=== PATIENT | male | born 1935 | race Caucasian/White ===

== ENCOUNTER → 2018-03-24 | Day surgery (SDC) | payer MEDICARE ==
[2018-03-20 15:42] LABS: BASOPHILS % 0.4 % (0.0-1.0); EOSINOPHILS # (AUTO) 0.1 (0.0-0.4); HEMATOCRIT 45.5 % (38.2-49.6); HEMOGLOBIN 15.8 g/dL (14.0-18.0); LYMPHOCYTES # (AUTO) 1.8 (1.0-3.2); LYMPHOCYTES % 22.5 % (18.0-39.1); MEAN CORPUSCULAR HEMOGLOBIN 33.5 pg (28-32); MEAN CORPUSCULAR HGB CONC 34.7 g/dL (31-35); MEAN CORPUSCULAR VOLUME 96.4 fL (81-99); MONOCYTES # (AUTO) 0.7 (0.2-0.8); MONOCYTES % 9.2 % (4.4-11.3); NEUTROPHILS # (AUTO) 5.3 (2.1-6.9); NEUTROPHILS % 66.4 % (38.7-80.0); PLATELET COUNT 145 x10e3/uL (140-360); RED BLOOD COUNT 4.72 x10e6/uL (4.3-5.7)
[2018-03-20 15:59] LABS: ANION GAP 13.5 mmol/L (8-16); CALCIUM 9.7 mg/dL (8.4-10.2); CREATININE, SERUM 1.43 mg/dL (0.72-1.25); POTASSIUM 4.5 mmol/L (3.5-5.1)
--- NOTE | 2018-03-20 16:08 | Diagnostic Imaging Report ---
EXAMINATION: PA and lateral views of the chest. COMPARISON: CTA chest 05/13/2016 CLINICAL HISTORY: Preoperative study, bladder cancer DISCUSSION: Lungs are well-inflated. No focal consolidation, pleural effusion, or pneumothorax. 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 Stable postsurgical changes of the mediastinum. No acute osseous abnormality. IMPRESSION: No acute cardiopulmonary abnormality. Signed by: Dr. Benjamin Santacruz M.D. on 03/20/2018 4:05 PM
[~2018-03-24] MED LIST: ARICEPT5 MG PO; ASPIRIN81 M2 PO; CEFTRIAXONE SOD 1 GM VIAL ONE; COQ-10100 MG PO; DEXAMETHASONE SOD PHOS INJ 4 MG/ML VIAL ONE; LIDOCAINE HCL 2% LOCAL INJ 5 ML SDV VIAL INJ ONE; MELATONIN3 MG PO; NIACIN 100 MG; ONDANSETRON HCL INJ 2 MG/ML VIAL ONE; PRIMIDONE50 MG PO; PROPOFOL IV EMULSION 10 MG/ML 20 ML VIAL ONE; SERTRALINE HCL50 MG PO; SEVOFLURANE INHAL SOLN 250 ML PEN BTL ONE; TAMSULOSIN HCL0.4 MG PO; TRIPLIX; Z.0.ATENOLOL25 MG PO; Z.0.GLIPIZIDE5 MG PO; Z.0.ISOSORBIDE MONO3; Z.0.LISINOPRIL20 MG PO; Z.0.OMEPRAZOLE20 M1 PO; Z.0.PLAVIX75 MG PO; Z.0.PRAVASTATIN SOD2 PO; Z.0.ZOLPIDEM TARTRAT PO
--- OUTSIDE RECORDS SUMMARY | 2018-03-24 10:05 | XMS REPORT ---
Author Author [facility] Address Unknown Phone Unavailable Care Team Providers Care Manager Hydraulic Name Role Phone Miller CARROLL Unavailable Unavailable Angie Ahmadi Unavailable Unavailable Problems This patient has no known problems. Allergies, Adverse Reactions, Alerts This patient has no known allergies or adverse reactions. Medications This patient has no known medications. Results Test Description Test Time Test Comments Text Results Atomic Results Result Comments CHEST 2 VIEWS 2018-03-20 16:03:00 [place] [address] Patient Name: VIN SALAZAR MR #: [id number] : 1935 Age/Sex: 82/M Req #: [id number] Adm Physician: Ordered by: RAMBO CARROLL MD Report #: [id number] Location: OR Room/Bed: Procedure: [id number] DX/CHEST 2 VIEWS Exam Date: 03/20/18 Exam Time: 1540 REPORT STATUS: Signed EXAMINATION: PA and lateral views of the chest. C OMPARISON: CTA chest 05/13/2016 CLINICAL HISTORY: Preoperative study, bladder cancer DISCUSSION: Lungs are well-inflated. No focal consolidation, pleural effusion, or pneumothorax. 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 Stable postsurgical changes of the mediastinum. No acute osseous abnormality. IMPRESSION: No acute cardiopulmonary abnormality. Signed by: Dr. Natalia Schneider M.D. on 03/20/2018 4:05 PM Dictated By: NATALIA SCHNEIDER MD 04 Transcribed By: SHINE on 03/20/181604 COPY TO: RAMBO CARROLL MD Troponin I 2017-09-11 11:24:00 Troponin I (test code=TROP) < 0.03 <0.03 Primary Language EnglishTroponin [id number] 02:31:00* Test Item Value Reference Range Comments Troponin I (test code=TROP) < 0.03 <0.03 Primary Language EnglishComplete blood count (CBC) with automated white blood cell (WBC) omdfeygrwwhd0696-03-19 23:04:00* Test Item Value Reference Range Comments White blood cell count (test owca=TEX5298) 7.3 4.3-10.9 Blood erythrocytes count (number/volume) (test qaki=07890-9) 4.56 M/ul 4.33-5.43 Hemoglobin measurement (test dite=CNS6470) 15.0 g/dL 13.6-17.9 SALINE REPLACEMENT USED DUE TO LIPEMIA. RELATED RBC INDICES RECALCUATED BASED ON NEW HGB VALUE--DT Blood hematocrit (volume fraction) (test mimv=06682-2) 43.9 % 39.6-49.0 MCV (test juoa=25745-2) 96.3 fL 80-100 MCH (test ivnc=66710-5) 32.9 pg 27.0-35.0 MCHC (test code=MCHC) 34.2 g/dL 32.0-36.0 Platelets (test code=PLT) 164 152-406 Red Cell Distribution Width (test code=RDW) 13.2 % 12.1-15.2 Blood platelet mean volume (test fxjk=94811-5) 8.6 fL 7.6-11.3 Neutrophils % (test code=YAMIL%) 62.3 % 41.7-73.7 Lymphocytes/leuk NFr Bld (test zpfg=79403-3) 26.0 % 15.3-44.8 Monocyte percentage (test ufdq=1597-4) 10.1 % 3.3-12.3 Eosinophil % (test rscr=456-1) 1.0 % 0-4.4 Basophil % (test nibc=86846-3) 0.6 % 0-1.3 Absolute neutrophil count (test ejfv=171-9) 4.6 1.8-8.0 Absolute lymphocyte count (test qjsy=92778-1) 1.9 0.7-4.9 Absolute monocyte count (test iusl=041-2) 0.7 0.1-1.3 Absolute Eosinophils (test code=EOA) 0.1 0-0.5 Absolute Basophils (test code=BASA) 0.0 0-0.5 Basic Metabolic Hyouj3406-66-20 23:00:00* Test Item Value Reference Range Comments Sodium level (test sonv=UVF6227) 137 meq/L 135-145 4.1 Chloride measurement (test xmhk=IMG9119) 107 meq/L 101-111 Bicarbonate (test code=CO2) 24 meq/L 21-31 Glucose measurement (test qmev=EHM8447) 193 mg/dL 65-120 ADA Clinical Practice Recommendation: <100 mg/dl=Normal Fasting Glucose BUN Bld-mCnc (test ttqs=1135-7) 23 mg/dL 6-20 Creatinine measurement (test lwgg=RVN9522) 1.58 mg/dL 0.61-1.24 The creatinine method used has been calibrated to be traceable to Isotope dilution Mass Spectrometry (IDMS). For more information: www.nkdep.nih.gov Estimated glomerular filtration rate (GFR) determination (test etdi=36139-7) 42 mL =/>90 FOR CHRONIC KIDNEY DISEASE: GFR STAGE DESCRIPTION=/>90 STAGE 1 NORMAL--OR-- MINIMAL KIDNEY DAMAGE WITH NORMAL GFR 60-89 STAGE 2 MILD DECREASE IN GFR 30-59 STAGE 3 MODERATE DECREASE IN GFR 15-29 STAGE 4 SEVERE DECREASE IN GFR <15 STAGE 5 KIDNEY FAILURE The Glomerular Filtration Rate (GFR) has been calculated using the IDMS-Traceable MDRD Study Equation. Calcium Level (test code=CA) 8.9 mg/dL 8.5-10.5 Test Ordered to Rule Out VTE/DVT? N Test Ordered to Rule Out VTE/DVT? NLiver (Hepatic) Zjshphhn9816-86-75 23:00:00* Test Item Value Reference Range Comments Aspartate aminotransferase (AST) measurement (test oxnz=QJI4765) 34 [iU]/L 10-42 ALT/SGPT (test code=SGPT) 16 [iU]/L 10-60 Alkaline Phosphatase (test code=ALK) 47 [iU]/L 42-121 Bilirubin total (test ndcg=WNG3696) 0.7 mg/dL 0.3-1.2 Bilirubin direct (test nuoa=9254-0) 0.3 mg/dL 0-0.2 Serum total protein measurement (test jgdc=2006-3) 6.7 g/dL 6.0-8.3 Albumin measurement (test yzrx=TIH8662) 3.6 g/dL 3.2-5.5 Globulin (test code=GLOB) 3.1 g/dL 2.3-3.5 Albumin/Globulin Ratio (test code=A/G) 1.2 1.1-1.8 Test Ordered to Rule Out VTE/DVT? N Test Ordered to Rule Out VTE/DVT? NCreatine Kbqvcawzhlcyy1816-05-28 23:00:00* Test Item Value Reference Range Comments Creatine Phosphokinase (test code=CPK) 98 [iU]/L 22-269 Test Ordered to Rule Out VTE/DVT? N Test Ordered to Rule Out VTE/DVT? NCKMB Creatine Kinase PZ9374-83-58 23:00:00* Test Item Value Reference Range Comments CKMB Creatine Kinase MB (test code=CKMB) 2.2 ng/mL 0.3-4.0 Test Ordered to Rule Out VTE/DVT? N Test Ordered to Rule Out VTE/DVT? NMagnesium 2017-09-10 23:00:00* Test Item Value Reference Range Comments Magnesium (test code=MG) 1.9 mg/dL 1.8-2.5 Test Ordered to Rule Out VTE/DVT? N Test Ordered to Rule Out VTE/DVT? NLipase kxvkgmwgige5646-24-56 23:00:00* Test Item Value Reference Range Comments Lipase measurement (test dhnd=8610-5) 50 U/L 22-51 Test Ordered to Rule Out VTE/DVT? N Test Ordered to Rule Out VTE/DVT? NThyroid Stimulating Alzorbn6285-86-14 23:00:00* Test Item Value Reference Range Comments Thyroid Stimulating Hormone (test code=TSH) 3.86 [iU]/L 0.34-5.60 Test Ordered to Rule Out VTE/DVT? N Test Ordered to Rule Out VTE/DVT? N Prothrombin time (PT) with international normalized ratio (INR)2017-09-10 22:45:00* Test Item Value Reference Range Comments PT Prothrombin Time (test code=PROTIME) 10.7 s 9.5-12.5 INR in Blood by Coagulation assay (test onzg=88861-4) 0.91 Monitor pts using INR value (not prothrombin time) INR Coumadin Therapy: Low Range (prophylaxis) 2.0-3.0 High Range (high risk of clot formation) 2.5-3.5 Test Ordered to Rule Out VTE/DVT? N Test Ordered to Rule Out VTE/DVT? NPTT, Activated Partial Pdrdcl0776-36-19 22:45:00* Test Item Value Reference Range Comments PTT, Activated Partial Thromb (test code=PTT) 26.3 s 24.3-36.9 Test Ordered to Rule Out VTE/DVT? N Test Ordered to Rule Out VTE/DVT? NBrain natriuretic peptide (BNP) hxvjlnfsqod0772-96-17 22:22:00* Test Item Value Reference Range Comments Brain natriuretic peptide (BNP) measurement (test rree=33571-9) 86 pg/mL <=100 Troponin (Emerg Dept Use Only)2017-09-10 22:22:00* Test Item Value Reference Range Comments Troponin (Emerg Dept Use Only) (test code=TROPED) < 0.03 <0.03 Test Ordered to Rule Out VTE/DVT? [place] [address] [facility] REPORT Name: VIN SALAZAR Acct Number: [id number] :1935 Age:82 Sex:M Ord Phys: Grayson Ignacio MD Unit Number: [id number] Prim Care Dr: NONE Status: ADM IN [address] [place], [place] [address] Exam Date: 09/10/17 [facility] 9[facility]58 [facility] CLINICAL HISTORY: Chest stephan n COMPARISON: none FINDINGS: Mild bilateral interstitial lung opac ities are suspected. The heart is enlarged. Post surgical chain IMPRESSION : Mild bilateral interstitial lung opacities may represent atypical pneumonia, pneumonitis or interstitial pulmonary edema Signed By: Magalie Kaur MD Signed AT: 09/11/17 0808
--- OUTSIDE RECORDS SUMMARY | 2018-03-24 10:05 | XMS REPORT | Clinical Summary ---
Author Author [facility] Organization [facility] Address Unknown Phone Unavailable Care Team Providers Care Bee Breeder Name Role Phone Michael Ro DO PCP Allergies Active Allergy Reactions Severity Noted Date Comments Iodinated Contrast- Oral Other (See Comments) 02/13/2017 Unknown And Iv Dye Povidone-Iodine Rash Low 07/15/2014 Simvastatin Other (See Comments) 07/15/2014 Myalgia Current Medications Prescription Sig. Disp. Refills Start End Date Status Date atenolol (TENORMIN) 25 MG Take 25 mg by mouth once 3 12/31/19 Active tablet daily. 17 clopidogrel (PLAVIX) 75 TK 1 T PO QD 3 12/19/19 Active mg tablet 17 donepezil (ARICEPT) 10 MG TK 1/2 T PO D FOR 1 MONTH 5 01/14/20 Active tablet THEN TK 1 T PO ONCE D 17 glipiZIDE (GLUCOTROL) 5 TK 1 T PO BID 1 11/20/19 Active MG tablet 17 nitroglycerin (NITROSTAT) NICKIE EVERY 5 MINUTES FOR 1 11/14/19 Active 0.4 MG SL tablet UP TO 3 DOSES. IF NO 17 RELIEF AFTER 3RD DOSE CALL 9-1-1 omeprazole (PriLOSEC) 20 02/07/20 Active MG capsule 17 primidone (MYSOLINE) 50 TK UTD HS 5 01/14/20 Active MG tablet 17 sertraline (ZOLOFT) 50 MG Take 50 mg by mouth Active tablet daily. tamsulosin (FLOMAX) 0.4 Take 1 capsule (0.4 mg 30 capsule 6 02/14/20 Active mg capsule,extended total) by mouth daily. 17 release 24hr pravastatin (PRAVACHOL) 03/11/20 Active 40 MG tablet 17 sertraline (ZOLOFT) 25 MG TK 1 T PO QD 0 02/19/20 Active tablet 17 choline fenofibrate TK 1 C PO QD 3 03/01/20 Active (TRILIPIX) 135 mg capsule 17 ciprofloxacin HCl (CIPRO) Take 1 tablet (250 mg 14 tablet 0 03/27/20 04/01/20 250 MG tablet total) by mouth 2 (two) 17 17 times a day for 5 days. 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 Bladder tumor 03/13/2017 Chest pain 10/15/2014 PVD (peripheral vascular disease) with claudication ([facility]) 07/20/2014 Bilateral carotid artery disease ([facility]) 07/15/2014 CAD (coronary artery disease) 07/15/2014 Overview: Overview: S/p ACB x 3, s/p PCI/stent RCA Claudication ([facility]) 07/15/2014 Overview: Overview: Right LE Diabetes mellitus, type II ([facility]) 07/15/2014 Dyslipidemia 07/15/2014 Former smoker 07/15/2014 HTN (hypertension) 07/15/2014 MOSHE (obstructive sleep apnea) 07/15/2014 PVD (peripheral vascular disease) ([facility]) 07/15/2014 Overview: Overview: S/p bilateral iliac artery stents, s/p femoral-tibial bypass Resolved Problems Problem Noted Date Resolved Date Gross hematuria 03/13/2017 04/16/2017 Encounters Date Type Specialty Care Team Description 04/16/2017 Office Visit Urology Raymon Barbosa MD 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); Former smoker; BPH with obstruction/lower urinary tract symptoms 04/11/2017 Telephone Urology Raymon Barbosa MD 04/10/2017 Telephone Urology Iona Chacon MA 04/10/2017 Telephone Urology Kait Spain MA 03/27/2017 Office Visit Urology Raymon Barbosa MD Bladder tumor (Primary Dx); Gross hematuria; BPH with obstruction/lower urinary tract symptoms after 03/23/2017 Family History Medical History Relation Name Comments Heart attack Father Diabetes Mother Relation Name Status Comments Father Mother Social History Tobacco Use Types Packs/Day Years Used Date Former Smoker Alcohol Use Drinks/Week oz/Week Comments Defer Sex Assigned at Date Recorded Not on file Last Filed Vital Signs Not on file Plan of Treatment Health Maintenance Due Date Last Done Comments DIABETIC FOOT EXAM 1945 DIABETIC RETINAL EYE EXAM 1945 SHINGRIX VACCINE (#1) 1987 ZOSTER VACCINE 1997 PNEUMOCOCCAL 2002 POLYSACCHARIDE VACCINE AGE 65 AND OVER PNEUMOCOCCAL-13 2002 INFLUENZA VACCINE 12/31/2017 Procedures Procedure Name Priority Date/Time Associated Diagnosis Comments POC URINALYSIS DIPSTICK Routine 03/27/2017 Gross hematuria Results for this 3:18 PM CDT procedure are in the results section. URINALYSIS, COMPLETE, Routine 03/27/2017 Bladder tumor Results for this WITH REFLEX TO CULTURE 1:49 PM CDT Gross hematuria procedure are in the results section. URINE CULTURE Routine 03/27/2017 Results for this 1:49 PM CDT procedure are in the results section. after 03/23/2017 Results * POC urinalysis dipstick (03/27/2017 3:18 PM) Color urine, POC Yellow Clarity urine, POC Clear Glucose urine, POC Negative Negative Bilirubin urine, POC Negative Negative Ketones urine, POC Negative Negative Specific gravity urine, 1.020 1.005 - 1.030 POC Blood urine, POC Trace (A) Negative pH urine, POC 6.0 5.0, 5.5, 6.0, 6.5, 7.0, 7.5, 8.0, 8.5 Protein urine, POC 3+ (A) Negative Urobilinogen urine, POC <2.0 <2.0 Nitrite urine, POC Negative Negative Leukocyte esterase urine, Trace (A) Negative POC Specimen Urine * URINALYSIS, COMPLETE, WITH REFLEX TO CULTURE (03/27/2017 1:49 PM) Color, UA YELLOW YELLOW [facility] Appearance CLEAR CLEAR [facility] Specific gravity, urine 1.013 1.001 - 1.035 [facility] pH, urine 6.0 5.0 - 8.0 [facility] Glucose, urine TRACE (A) NEGATIVE [facility] [facility] Bilirubin, UA NEGATIVE NEGATIVE [facility] Ketones, UA NEGATIVE NEGATIVE [facility] Occult blood, urine NEGATIVE NEGATIVE [facility] Protein, UA 3+ (A) NEGATIVE [facility] [facility] Nitrite, UA NEGATIVE NEGATIVE [facility] [facility] Leukocyte esterase, UA NEGATIVE NEGATIVE [facility] [place] WBC, UA 6-10 (A) < OR=5 /HPF [facility] [place] RBC, UA NONE SEEN < OR=2 /HPF [facility] [place] Squamous epithelial NONE SEEN < OR=5 /HPF [facility] cells, UA [place] Bacteria, UA NONE SEEN NONE SEEN /HPF [facility] [place] Hyaline casts, UA NONE SEEN NONE SEEN /LPF [facility] [place] Reflex CULTURE INDICATED - RESULTS TO [facility] Other Results Text Performing Organization Information: Site ID: [email or web address] Name: [email or web address] Lab Address: [address] [place] [id number] Director: Marija Medina MD Performing Organization Address [facility] Phone Number [employer] [place] [phone] * Urine culture (03/27/2017 1:49 PM) Urine culture Comment: [employer] CULTURE, URINE, ROUTINE [place] MICRO NUMBER:[id number] TEST STATUS: FINAL SPECIMEN SOURCE: URINE SPECIMEN QUALITY:ADEQUATE RESULT: Multiple organisms present, each less than 10,000 CFU/mL. These organisms, commonly found on external and internal genitalia, are considered to be colonizers. No further testing performed. Other Results Text Performing Organization Information: Site ID: [email or web address] Name: [email or web address] Lab Address: [address] [place] [id number] Director: Marija Medina MD Performing Organization Address [facility] Cent[facility]ode Phone Number [employer] [address] [phone] after 03/23/2017 Insurance Payer Benefit Subscriber ID Type Phone Address Plan / Group UHC MEDICARE [employer] xxxxxxxxx O [employer]
--- OUTSIDE RECORDS SUMMARY | 2018-03-24 10:05 | XMS REPORT | Continuity of Care Document ---
Author Author [facility] Interface Address Unknown Phone Unavailable Problems Problem Status Onset Date Classification Date Reported Comments Source 599.71/96608 Active 11/04/2012 [facility] GROSS HEMATURIA Active [facility] Medications Medication Details Route Status Patient Instructions Ordering Provider Order Date Source Allergies, Adverse Reactions, Alerts Substance Category Reaction Severity Reaction type Status Date Reported Comments Source Immunizations Immunization Date Given Site Status Last Updated Comments Source Results Order Name Results Value Reference Range Date Interpretation Comments Source Brain wo contrast MRI Brain wo contrast MRI MRI BRAIN WITHOUT CONTRAST COMPARISON: No prior exam. COMMENTS: No acute intracranial hemorrhage, acute ischemia, or mass identified. No diffusion restriction is identified. Extensive encephalomalacia and gliosis involves the right parietal lobe due to remote ischemia. Mild gliosis also involves the left frontoparietal junction due to remote ischemia. Minimal white matter FLAIR and T2-weighted signal abnormalities are seen, likely due to microvascular ischemia. The brainstem is unremarkable. Mild cerebral atrophy is seen. The paranasal sinuses and mastoid air cells are well aerated. Flow voids are seen within the vessels at the skull base. IMPRESSION: 1. No acute intracranial hemorrhage, acute ischemia, or mass. 1. Right parietal lobe remote ischemia and minimal left frontoparietal junction remote ischemia. 2. Minimal microvascular ischemia. Mild cerebral atrophy. 06/10/2013 - - Read by: Buster Garza Dictated Date/time: 06/10/13 16:19 Electronically Signed by: Buster Garza MD 06/10/13 16:47 FINAL REPORT [facility] Lee Abdomen/Pelvis wo contrast CT Abdomen/Pelvis wo contrast CT PROCEDURE: Abdomen/Pelvis wo contrast CT REASON FOR EXAM: See Clinic Indication CLINICAL INFORMATION renal stone protocol COMPARISON: None. ABDOMEN without IV contrast: There is bibasilar scarring, no free air. There is atheromatous aortic calcification, no aneurysm. Low-density left lower pole renal lesions are incompletely evaluated without contrast, measuring 10-11 Hounsfield units. Right lower pole low-density renal lesion measures 12 Hounsfield units. These statistically represent cysts. A 1 mm left upper pole renal stone measures 113 Hounsfield units. There is no hydronephrosis or perinephric stranding. 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 The gallbladder, spleen, adrenal glands, pancreas are unremarkable. There is a small hiatal hernia. PELVIS without IV contrast: There is a moderate degree of luminal air in the bladder. There are prostatic calcifications. The small bowel caliber is normal. There is mild to moderate degree of retained feces throughout the colon. The appendix is normal. There is no free fluid or inflammatory change of the lower pelvis. Bilateral iliac stent grafts are partially visualized. IMPRESSION: 1. Greater than expected air in the bladder lumen. Correlation for recent intervention is recommended. 2. Small hiatal hernia. 3. Bilateral iliac stent grafts. These findings were communicated to Dr. Hassan via the [employer] Alert System at 4:04 p.m. SL: 13 11/11/2012 - - Read by: Kayden Fabian Dictated Date/time: 11/11/12 15:35 Electronically Signed by: Kayden Fabian MD 11/11/12 16:04 FINAL REPORT [facility] Vital Signs Vital Sign Value Date Comments Source Encounters Location Location Details Encounter Type Encounter Number Reason For Visit Attending Provider ADM Date DC Date Status Source [facility] Outpatient [id number]/29111 SVETLANA HASSAN 11/11/2012 Active [facility] Procedures Procedure Code Date Perfomer Comments Source
--- OUTSIDE RECORDS SUMMARY | 2018-03-24 10:05 | XMS REPORT | Continuity of Care Document ---
Author Author [facility] Address [address] [place] [address] Care Team Providers Care Glass Edger Name Role Phone NONE, NONE PCP Unavailable Grayson Ignacio Rndphys Giacomo Nolen Rndphys Matheus Shelton Rndphys Angie Ahmadi Attphys Allergies, Adverse Reactions, Alerts No known allergies. Medications Active Medications Medication Dose Units Route Sig Qty Days Start Date Discontinued Date Status Instructions Donepezil 5 MG ORAL DAILY September 11, 2017 Active Aspirin 325 MG ORAL DAILY September 11, 2017 Active Clonazepam 0.5 MG ORAL NEEDED PRN For anxiety September 11, 2017 Active Tamsulosin 0.4 MG ORAL DAILY September 11, 2017 Active Glipizide 5 MG ORAL TWICE DAILY September 11, 2017 Active Atorvastatin Calcium 40 MG ORAL AT BEDTIME September 11, 2017 Active Primidone 50 MG ORAL DAILY September 11, 2017 Active Omeprazole 20 MG ORAL DAILY September 11, 2017 Active Clopidogrel Bisulfate 75 MG ORAL DAILY September 11, 2017 Active Tramadol Hcl 50 MG ORAL TWICE DAILY PRN For back pain September 11, 2017 Active Ubidecarenone 10 MG ORAL DAILY September 11, 2017 Active Sertraline 25 MG ORAL DAILY September 11, 2017 Active Atenolol 50 MG ORAL DAILY 30 September 11, 2017 Active Discontinued Medications Medication Dose Units Route Sig Qty Days Start Date Discontinued Date Status Instructions Atenolol 25 MG ORAL DAILY September 11, 2017 September 11, 2017 Discontinued Problem List Active Problems Medical Problem Onset Date Status DM type 2 (diabetes mellitus, type 2) September 11, 2017 Active CAD (coronary artery disease) September 11, 2017 Active Alzheimer's dementia September 11, 2017 Active Depression September 11, 2017 Active Chest pain, rule out acute myocardial infarction September 11, 2017 Active HTN (hypertension) September 11, 2017 Active Procedures Procedure Date Status Chest Single View September 10, 2017 completed [place] Count September 10, 2017 active September 10, 2017 active Relevant Diagnostic Tests and/or Laboratory Data Laboratory Results Test Date/Time Result Interp. Ref. 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 RELATED RBC INDICES RECALCUATED BASED ON NEW HGB VALUE--DT Hematocrit September 10, 2017 9:40pm 43.9 % 39.6-49.0 Mean Corpuscular Volume September 10, 2017 9:40pm 96.3 fL 80-100 Mean Corpuscular Hemoglobin September 10, 2017 9:40pm 32.9 pg 27.0-35.0 Mean Corpuscular Hemoglobin Concent September 10, 2017 9:40pm 34.2 g/dL 32.0-36.0 Platelet Count September 10, 2017 9:40pm 164 K/uL 152-406 Red Cell Distribution Width September 10, 2017 9:40pm 13.2 % 12.1-15.2 Mean Platelet Volume September 10, 2017 9:40pm 8.6 fL 7.6-11.3 Neutrophils % September 10, 2017 9:40pm 62.3 % 41.7-73.7 Lymphocytes % September 10, 2017 9:40pm 26.0 % 15.3-44.8 Monocytes % September 10, 2017 9:40pm 10.1 % 3.3-12.3 Eosinophils % September 10, 2017 9:40pm 1.0 % 0-4.4 Basophils % September 10, 2017 9:40pm 0.6 % 0-1.3 Absolute Neutrophil September 10, 2017 9:40pm 4.6 K/uL 1.8-8.0 Absolute Lymphocytes (CBC) September 10, 2017 9:40pm 1.9 K/uL 0.7-4.9 Absolute Monocytes (CBC) September 10, 2017 9:40pm 0.7 K/uL 0.1-1.3 Absolute Eosinophils (CBC) September 10, 2017 9:40pm 0.1 K/uL 0-0.5 Absolute Basophils (CBC) September 10, 2017 9:40pm 0.0 K/uL 0-0.5 Prothrombin Time September 10, 2017 9:40pm 10.7 SECONDS 9.5-12.5 INR International Normalized Ratio September 10, 2017 9:40pm 0.91 Monitor pts using INR value (not prothrombin time) INR Coumadin Therapy: Low Range (prophylaxis) 2.0-3.0 High Range (high risk of clot formation) 2.5-3.5 Activated Partial Thromboplast Time September 10, 2017 9:40pm 26.3 SECONDS 24.3-36.9 Sodium Level September 10, 2017 9:40pm 137 mEq/L 135-145 Potassium Level September 10, 2017 9:40pm 4.1 mEq/L 3.6-5.0 Chloride Level September 10, 2017 9:40pm 107 mEq/L 101-111 Carbon Dioxide Level September 10, 2017 9:40pm 24 mEq/L 21-31 Glucose Level September 10, 2017 9:40pm 193 mg/dL High 65-120 ADA Clinical Practice Recommendation: <100 mg/dl=Normal Fasting Glucose Blood Urea Nitrogen September 10, 2017 9:40pm 23 mg/dL High 6-20 Creatinine September 10, 2017 9:40pm 1.58 mg/dL High 0.61-1.24 The creatinine method used has been calibrated to be traceable to Isotope dilution Mass Spectrometry (IDMS). For more information: www.nkdep.nih.gov Estimat Glomerular Filtration Rate September 10, 2017 9:40pm 42 mL/min Low 90- FOR CHRONIC KIDNEY DISEASE: GFR STAGE DESCRIPTION =/>90 STAGE 1 NORMAL--OR-- MINIMAL KIDNEY DAMAGE WITH NORMAL GFR 60-89 STAGE 2 MILD DECREASE IN GFR 30-59 STAGE 3 MODERATE DECREASE IN GFR 15-29 STAGE 4 SEVERE DECREASE IN GFR <15 STAGE 5 KIDNEY FAILURE The Glomerular Filtration Rate (GFR) has been calculated using the IDMS-Traceable MDRD Study Equation. Aspartate Amino Transf (AST/SGOT) September 10, 2017 9:40pm 34 IU/L 10-42 Alanine Aminotransferase (ALT/SGPT) September 10, 2017 9:40pm 16 IU/L 10-60 Alkaline Phosphatase September 10, 2017 9:40pm 47 IU/L 42-121 Total Bilirubin September 10, 2017 9:40pm 0.7 mg/dL 0.3-1.2 Direct Bilirubin September 10, 2017 9:40pm 0.3 mg/dL High 0-0.2 Calcium Level September 10, 2017 9:40pm 8.9 mg/dL 8.5-10.5 Serum Total Protein September 10, 2017 9:40pm 6.7 g/dL 6.0-8.3 Albumin September 10, 2017 9:40pm 3.6 g/dL 3.2-5.5 Globulin September 10, 2017 9:40pm 3.1 g/dL 2.3-3.5 Albumin/Globulin Ratio September 10, 2017 9:40pm 1.2 1.1-1.8 Creatine Kinase September 10, 2017 9:40pm 98 IU/L 22-269 Creatine Kinase MB September 10, 2017 9:40pm 2.2 ng/ml 0.3-4.0 Rapid Troponin I September 10, 2017 9:40pm < 0.03 ng/mL Troponin I September 11, 2017 10:20am < 0.03 ng/mL B-Type Natriuretic Peptide September 10, 2017 9:40pm 86 pg/ml Magnesium Level September 10, 2017 9:40pm 1.9 mg/dL 1.8-2.5 Lipase September 10, 2017 9:40pm 50 U/L 22-51 Thyroid Stimulating Hormone (TSH) September 10, 2017 9:40pm 3.86 uIU/mL 0.34-5.60 Discharge Summary Encounter: Discharged Inpatient Admit Date: September 10, 2017 10:41pm Discharge Date: September 11, 2017 2:18pm [facility] NAME: ANNAVIN GANNON ADMITTING: Giacomo Nolen MD ADMIT DATE: 09/10/17 ATTENDING: Giacomo Nolen MD : 1935 ACCOUNT NO: [id number] PATIENT TYPE: ADM IN LOCATION: [address] [place] [address] Name: Vin Salazar Age: 82 yrs Sex: Male : 1935 Arrival Date: 09/10/2017 Time: 21:21 Bed 3 Private MD: Diagnosis: Atrial fibrillation and flutter;Other chest pain;Type 2 diabetes mellitus Presentation: 09/10 21:25 Presenting complaint: Patient states: that he started to have chest pain at approx 1930 fc along with shortness of breath. Pain radiates to left arm and left jaw. Denies any nausea or vomiting. Transition of care: patient was not received from another setting of care. Onset of symptoms was September 10, 2017 at 19:30. Care prior to arrival: Medication(s) given: Nitroglycerin, 0.4 mg SL x 1. 21:25 Method Of Arrival: Wheelchair 21:25 Acuity: ROBERT 2 fc Historical: - Allergies: :56 No Known Allergies; fc - Home Meds: 21:56 aspirin 325 mg Oral tab 1 tab once daily [Active]; glipizide 5 mg Oral tr24 1 tab twice fc a day [Active]; donepezil 10 mg oral tab .5 tab once daily [Active]; atenolol 25 mg Oral tab 1 tab once daily [Active]; sertraline 25 mg oral tab 1 tab once daily [Active]; clopidogrel 75 mg oral tab 1 tab once daily [Active]; Co Q-10 oral oral daily [Active]; primidone 50 mg Oral tab nightly [Active]; clonazepam 0.5 mg Oral tab 1 tab as needed [Active]; tramadol 50 mg Oral tab 1 tab twice a day [Active]; atorvastatin 40 mg oral tab 1 tab nightly [Active]; omeprazole 40 mg Oral cpDR 1 cap nightly [Active]; - PMHx: 21:56 Myocardial infarction; CAD; Diabetes - NIDDM; High Cholesterol; Dementia; Depression; fc - PSHx: 21:56 CABG; Heart stents; Hernia repair; - Immunization history:: Last tetanus immunization: unknown. - Social history:: Smoking status: Patient/guardian denies using tobacco, the patient reports quitting approximately 20 years ago. - Family history:: not pertinent. Screenin:25 Abuse screen: Denies threats or abuse. Nutritional screening: No deficits noted. Tuberculosis screening: No symptoms or risk factors identified. Fall Risk None identified. Assessment: 21:30 General: Appears uncomfortable, Behavior is calm, cooperative, appropriate for age. bp Pain: Complains of pain in mid chest Pain does not radiate. Pain currently is 7 out of 10 on a pain scale. Quality of pain is described as aching, Pain began gradually. Neuro: Level of Consciousness is awake, alert, obeys commands, Oriented to person, place, time, hx of dementia. Speech is normal, Facial symmetry appears normal, Pupils are PERRLA, Intact. Cardiovascular: Reports chest pain, palpitations, Denies nausea, palpitations, shortness of breath, syncope, Heart tones S1 S2 present Capillary refill < 3 seconds Patient's skin is warm and dry. Pulses are all present. Rhythm is w/ RVR. Respiratory: Airway is patent Trachea midline Respiratory effort is even, unlabored, Respiratory pattern is regular, symmetrical, Breath sounds are clear bilaterally. GI: No deficits noted. No signs and/or symptoms were reported involving the gastrointestinal system. : No deficits noted. No signs and/or symptoms were reported regarding the genitourinary system. EENT: No deficits noted. No signs and/or symptoms were reported regarding the EENT system. Derm: No deficits noted. No signs and/or symptoms reported regarding the dermatologic system. Musculoskeletal: Circulation, motion, and sensation intact. Capillary refill < 3 seconds, Range of motion: intact in all extremities. 22:30 Reassessment: Patient appears in no apparent distress at this time. Patient and/or bp family updated on plan of care and expected duration. Pain level reassessed. Patient is alert, oriented x 3, equal unlabored respirations, skin warm/dry/pink. Patient states symptoms have improved. 23:30 Reassessment: Patient appears in no apparent distress at this time. No changes from bp previously documented assessment. Patient and/or family updated on plan of care and expected duration. Pain level reassessed. Patient is alert, oriented x 3, equal unlabored respirations, skin warm/dry/pink. 09/11 00:30 Reassessment: Patient appears in no apparent distress at this time. No changes from bp previously documented assessment. Patient and/or family updated on plan of care and expected duration. Pain level reassessed. Patient is alert, oriented x 3, equal unlabored respirations, skin warm/dry/pink. Patient alert and oriented to person, place, situation, does have some intermittent confusion due to hx of dementia. No chest pain noted at this time. No signs of resp distress. Patient now in sinus rhythm, another EKG done. Vital Signs: 09/10 21:25 BP 152 / 87; Pulse 106; Resp 20; Temp 98.(O); Pulse Ox 98% on R/A; Weight 70.76 kg (R); fc Height 5 ft. 11 in. (180.34 cm) (R); Pain 3/10; 21:45 BP 140 / 89; Pulse 112; Resp 18; Pulse Ox 97% on R/A; Pain 0/10; bp 21:56 BP 132 / 92; Resp 18; Pulse Ox 97% on R/A; Pain 0/10; bp 22:00 BP 111 / 94; Pulse 104; Resp 18; Pulse Ox 97% on R/A; Pain 0/10; bp 22:09 BP 124 / 91; Pulse 95; Resp 18; Pulse Ox 96% ; Pain 0/10; bp 22:15 BP 145 / 128; Pulse 118; Resp 18; Pulse Ox 96% on R/A; bp 22:30 BP 152 / 92; Pulse 80; Resp 17; Pulse Ox 97% on R/A; Pain 0/10; bp 22:45 BP 143 / 88; Pulse 83; Resp 18; Pulse Ox 96% on R/A; bp 23:00 BP 143 / 97; Pulse 78; Pulse Ox 100% on R/A; bp 23:15 BP 154 / 95; Pulse 80; Pulse Ox 100% on R/A; bp 23:30 BP 153 / 92; Pulse 79; Pulse Ox 96% on R/A; bp 23:45 BP 151 / 95; Pulse 78; Pulse Ox 97% on R/A; bp 04 00:00 BP 150 / 90; Pulse 77; Pulse Ox 98% on R/A; bp 00:15 BP 162 / 95; Pulse 76; Pulse Ox 98% on R/A; bp 09/10 21:25 Body Mass Index 21.76 (70.76 kg, 180.34 cm) fc ED Course: 09/10 21:21 Patient arrived in ED. as 21:25 Arm band placed on Patient placed in an exam room, on a stretcher, on ekg monitor tech, fc on pulse oximetry. 21:25 Patient has correct armband on for positive identification. Placed in gown. Bed in low fc position. Call light in reach. secured entrance monitor on. Pulse ox on. NIBP on. 21:25 No provider procedures requiring assistance completed. Patient maintains SpO2 fc saturation greater than 95% on room air. 21:29 Rogelio Rooney, ANDREY is Primary Nurse. bp 21:38 Triage completed. fc 21:38 Grayson Ignacio MD is Attending Physician. abbey 21:56 X-ray completed. Portable x-ray completed in exam room. Patient tolerated procedure ml well. 21:57 XRAY Chest (1 view) In Process Unspecified. EDMS 22:40 Giacomo Nolen MD is Hospitalizing Provider. [facility] 09/11 00:45 Patient admitted, IV remains in place. intact. bs1 Administered Medications: Discontinued: NS 0.9% 1000 ml IV at 125 ml/hr continuous 09/10 21:54 Drug: Aspirin 162 mg Route: PO; bs 09/11 00:51 Follow up: Response: No adverse reaction [facility] 09/10 21:54 Drug: Lopressor 5 mg Route: IVP; Site: left antecubital; bs1 21:54 Drug: Lopressor (metoprolol TARTRATE) 50 mg Route: PO; bs 09/11 00:50 Follow up: Response: No adverse reaction [facility] 09/10 21:55 Drug: NS 0.9% 1000 ml Route: IV; Rate: 125 ml/hr; Site: left antecubital; bs1 09/11 00:52 Follow up: IV Status: Order to discontinue infusion; IV Intake: 450ml bs1 00:54 Follow up: IV Status: Infusion continued upon admission [facility] 09/10 21:58 Drug: Lovenox 1 mg/kg Route: Sub-Q; Site: left lower abdomen; bs1 09/11 00:51 Follow up: Response: No adverse reaction [facility] 09/10 22:02 Drug: Lopressor 5 mg Route: IVP; Site: left antecubital; bs1 22:02 Drug: Pepcid 20 mg Route: IVP; Site: left antecubital; bs 09/11 00:48 Follow up: Response: No adverse reaction [facility] 09/10 22:03 Drug: Digoxin 0.5 mg Route: IVP; Site: left antecubital; bs 09/11 00:48 Follow up: Response: No adverse reaction [facility] 09/10 22:10 Drug: Lopressor 5 mg Route: IVP; Site: left antecubital; bs1 09/11 00:50 Follow up: Response: No adverse reaction bs1 Intake: 00:52 IV: 450ml; Total: 450ml. bs1 Outcome: 09/10 22:40 Decision to Hospitalize by Provider. abbey 09/11 00:45 Instructed on the need for admit. bs1 00:45 Admitted to Tele accompanied by tech, via wheelchair, room 419, with chart, Report bs1 called to ANDREY Jung, warehouse unloader Aline Called warehouse unloader to give report 00:47 Condition: stable bp 01:35 Patient left the ED. bs1 Signatures: Dispatcher [employer] EDMS Grayson Ignacio MD MD cha Chretien, Felicia, RN RN Carrie Michele Melissa ml Peltier, Brian RN RN Nuris Cordon RN RN bs1 09/11/17 0136 Advance Directives Advance Directive Response Recorded Date/Time Does Patient Have Living Will No September 11, 2017 7:17am Durable Power of Sausage Cutter for Health Care No September 11, 2017 7:17am Would you like additional information No September 11, 2017 1:50am Chief Complaint and Reason for Visit Encounter Admit Date Chief Complaint Reason for Visit Discharged Inpatient September 10, 2017 10:41pm CHEST PAIN Alzheimer's disease Coronary artery disease Chest pain, rule out acute myocardial infarction Type 2 diabetes mellitus Depression Hypertension Hospital Discharge Instructions No known hospital discharge instructions. Hospital Discharge Medications Medication Dose Units Route Sig Qty Days Order Date Status Instructions Donepezil 5 MG ORAL DAILY September 11, 2017 Active Aspirin 325 MG ORAL DAILY September 11, 2017 Active Atenolol 25 MG ORAL DAILY September 11, 2017 Discontinued Clonazepam 0.5 MG ORAL NEEDED PRN For anxiety September 11, 2017 Active Tamsulosin 0.4 MG ORAL DAILY September 11, 2017 Active Glipizide 5 MG ORAL TWICE DAILY September 11, 2017 Active Atorvastatin Calcium 40 MG ORAL AT BEDTIME September 11, 2017 Active Primidone 50 MG ORAL DAILY September 11, 2017 Active Omeprazole 20 MG ORAL DAILY September 11, 2017 Active Clopidogrel Bisulfate 75 MG ORAL DAILY September 11, 2017 Active Tramadol Hcl 50 MG ORAL TWICE DAILY PRN For back pain September 11, 2017 Active Ubidecarenone 10 MG ORAL DAILY September 11, 2017 Active Sertraline 25 MG ORAL DAILY September 11, 2017 Active Atenolol 50 MG ORAL DAILY 30 September 11, 2017 Active Encounters Encounter Facility Location Admit Date Discharge Date Attending Provider Discharged Inpatient [facility] September 10, 2017 10:41pm September 11, 2017 2:18pm Angie Ahmadi Encounter Diagnosis Onset Date Alzheimer's disease September 11, 2017 Coronary artery disease September 11, 2017 Chest pain, rule out acute myocardial infarction September 11, 2017 Type 2 diabetes mellitus September 11, 2017 Depression September 11, 2017 Hypertension September 11, 2017 Family History Query Response Instance Date Recorded Comment Medical History Hypertension Diabetes Mother September 11, 2017 7:17am Medical History Heart disease Father September 11, 2017 7:17am Functional Status Query Response Date Recorded Comment Mental Status Oriented to Own Ability September 11, 2017 12:00pm Query Response Date Recorded Comment [place]athe Self Independent September 11, 2017 1:50am Completes ADL's Without Assistance Yes September 11, 2017 1:50am Cook for Self Independent September 11, 2017 1:50am Dress/[place] Self Independent September 11, 2017 1:50am Feed Self Independent September 11, 2017 1:50am Toileting Independent September 11, 2017 1:50am Immunizations No known immunizations. Payers Payer Name Policy Type Covered Republican Covered Republican Id Relationship Subscriber Subscriber Id MEDICARE U[employer] Medicare Primary VIN SALAZAR [id number] SAME PATIENT (SELF) Plan of Care Instructions DI for Coronary Artery Disease Hypertension PROBLEM:chest pain GOAL: Clear understanding of disease process INSTRUCTIONS: Please f/u with Cardiology in [place] in 1 to 2 weeks post discharge Change Medication Atenolol 50mg daily Please continue taking your medication as prescribed. Diet: Regular Activity: Ad raquel Social History Query Response Date Recorded Comment Alcohol Use? Yes September 11, 2017 7:17am CD- Drugs? No September 11, 2017 7:17am Query Response Start Date Stop Date Smoking Status Former smoker June 02, 1949 June 02, 1996 Vital Signs Vital Reading Result Reference Range Collection Date/Time Height 5 ft 11 in September 11, 2017 2:17am Weight 149 lb 8 oz September 11, 2017 2:17am Temperature 97.4 F 96.8 F-100.9 F September 11, 2017 11:27am Pulse 68 BPM 50-90 September 11, 2017 11:27am Respiration 18 RPM 12-20 September 11, 2017 11:27am Pulse Oximetry 99 % 91- September 11, 2017 11:27am Blood Pressure Systolic 140 90-140 September 11, 2017 11:27am Blood Pressure Diastolic 72 60-90 September 11, 2017 11:27am Body Mass Index 20.8 September 11, 2017 2:17am
[2018-03-24 13:20] VITALS: BP 134/96
--- NOTE | 2018-03-26 12:50 | Operative Report ---
DATE OF PROCEDURE: March 24, 2018 PREOPERATIVE DIAGNOSIS: Hematuria with a prior history of transitional cell carcinoma of bladder. 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 OPERATIVE PROCEDURES PERFORMED: 1. Cystoscopy. 2. Bladder biopsies. ANESTHESIA: General anesthesia. ESTIMATED BLOOD LOSS: Minimal. INDICATIONS: Mr. Jason Fernandez is an 82-year-old gentleman with a prior history TCC of the bladder, who was recently found to have recurrent microscopic hematuria. He presents for further evaluation of this problem. DETAILS OF PROCEDURE: The patient was brought into the operating room, placed in supine position, after initiation of general anesthesia was placed in the dorsal lithotomy position and prepped and draped in the usual sterile fashion. Cystourethroscopy was performed using a 22-Greek cystoscope. The anterior and posterior urethra were noted to be normal. The prostate revealed a mild lateral lobar hyperplasia. The bladder was entered without difficulty. Upon entrance into the bladder, the ureteral orifices were in their normal anatomical position and produced clear reflux. On the posterior wall and in the region of the trigone, there were erythematous patches noted. There were no mucosal lesions seen anywhere else in the bladder. Using the cold cup bladder biopsy forceps, biopsies were taken from both of these areas. They were separately labeled and sent to pathology for microscopic analysis. The Bugbee electrode was then used to fulgurate these areas so that there was no significant bleeding noted at the conclusion of the procedure. The bladder was then drained in its entirety, and the cystoscope and the sheath were removed. Patient was returned to the supine position. The anesthesia was reversed and patient transferred to a bed and taken to the postanesthesia care unit in good condition. Of note, the needle and instrument count was correct at the conclusion of the case. Job#: [id number] EV
== END | disposition home or self-care (01) ==
LOC: OR 10:02
PROVIDERS: ATTEND Urology
DX: D09.0 Carcinoma in situ of bladder (principal); N40.0 Benign prostatic hyperplasia without lower urinary tract symptoms; I25.810 Atherosclerosis of coronary artery bypass graft(s) without angina pectoris; I25.2 Old myocardial infarction; E11.22 Type 2 diabetes mellitus with diabetic chronic kidney disease; I13.0 Hypertensive heart and chronic kidney disease with heart failure and stage 1 through stage 4 chronic kidney disease, or unspecified chronic kidney disease; N18.9 Chronic kidney disease, unspecified; I50.9 Heart failure, unspecified; K21.9 Gastro-esophageal reflux disease without esophagitis; F03.90 Unspecified dementia, unspecified severity, without behavioral disturbance, psychotic disturbance, mood disturbance, and anxiety; F32.9 Major depressive disorder, single episode, unspecified; F41.9 Anxiety disorder, unspecified; Z01.810 Encounter for preprocedural cardiovascular examination; Z01.812 Encounter for preprocedural laboratory examination; Z01.818 Encounter for other preprocedural examination; Z79.82 Long term (current) use of aspirin; Z79.02 Long term (current) use of antithrombotics/antiplatelets; Z79.84 Long term (current) use of oral hypoglycemic drugs; Z86.73 Personal history of transient ischemic attack (TIA), and cerebral infarction without residual deficits; Z95.1 Presence of aortocoronary bypass graft
CPT/HCPCS: 36415 ×2; 52214; 71046; 80048; 82948; 85025; 88305; 93005; J0696; J1100; J2001; J2405

== ENCOUNTER 2018-07-29 14:25 | Inpatient (IN) | payer MEDICARE ==
[~2018-07-29] VITALS: Ht 177.8 cm; Wt 64.7 kg
[~2018-07-29 14:25] MED LIST changes: -CEFTRIAXONE SOD 1 GM VIAL ONE; -DEXAMETHASONE SOD PHOS INJ 4 MG/ML VIAL ONE; -LIDOCAINE HCL 2% LOCAL INJ 5 ML SDV VIAL INJ ONE; -ONDANSETRON HCL INJ 2 MG/ML VIAL ONE; -PROPOFOL IV EMULSION 10 MG/ML 20 ML VIAL ONE; -SEVOFLURANE INHAL SOLN 250 ML PEN BTL ONE
--- OUTSIDE RECORDS SUMMARY | 2018-07-29 14:29 | XMS REPORT | Clinical Summary ---
Author Author [facility] Organization [facility] Address Unknown Phone Unavailable Care Team Providers Care Beater Boss Name Role Phone Michael Ro DO PCP Allergies Comments Active Allergy Reactions Severity Noted Date Unknown Iodinated Contrast- Oral Other (See 02/13/2017 And Iv Dye Comments) Povidone-Iodine Rash Low 07/15/2014 Myalgia Simvastatin Other (See 07/15/2014 Comments) Medications End Date Status Medication Sig Dispensed Refills Start Date Active atenolol (TENORMIN) 25 MG Take 25 mg by 3 tablet mouth once 7 daily. Active clopidogrel (PLAVIX) 75 TK 1 T PO QD 3 mg tablet 7 Active donepezil (ARICEPT) 10 MG TK 1/2 T PO D 5 tablet FOR 1 MONTH 7 THEN TK 1 T PO ONCE D Active glipiZIDE (GLUCOTROL) 5 TK 1 T PO BID 1 MG tablet 7 Active nitroglycerin (NITROSTAT) NICKIE EVERY 5 1 0.4 MG SL tablet MINUTES FOR 7 UP TO 3 DOSES. IF NO RELIEF AFTER 3RD DOSE CALL 9-1-1 Active omeprazole (PriLOSEC) 20 0 MG capsule 7 Active primidone (MYSOLINE) 50 TK UTD HS 5 MG tablet 7 Active sertraline (ZOLOFT) 50 MG Take 50 mg by 0 tablet mouth daily. Active tamsulosin (FLOMAX) 0.4 Take 1 30 capsule 6 mg capsule,extended capsule (0.4 7 release 24hr mg total) by mouth daily. 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 Bladder tumor 03/13/2017 Chest pain 10/15/2014 PVD (peripheral vascular disease) with claudication 07/20/2014 Bilateral carotid artery disease 07/15/2014 CAD (coronary artery disease) 07/15/2014 Overview: Overview: S/p ACB x 3, s/p PCI/stent RCA Claudication 07/15/2014 Overview: Overview: Right LE Diabetes mellitus, type II 07/15/2014 Dyslipidemia 07/15/2014 Former smoker 07/15/2014 HTN (hypertension) 07/15/2014 MOSHE (obstructive sleep apnea) 07/15/2014 PVD (peripheral vascular disease) 07/15/2014 Overview: Overview: S/p bilateral iliac artery stents, s/p femoral-tibial bypass Family History Medical History Relation Name Comments Heart attack Father Diabetes Mother Relation Name Status Comments Father Mother Social History Date Tobacco Use Types Packs/Day Years Used Former Smoker Alcohol Use Drinks/Week oz/Week Comments Defer Sex Assigned at Date Recorded Not on file Industry Job Start Date Occupation Not on file Not on file Not on file Travel End Travel History Travel Start No recent travel history available. Last Filed Vital Signs Not on file Plan of Treatment Health Maintenance Due Date Last Done Comments DIABETIC RETINAL EYE EXAM 1937 DIABETIC FOOT EXAM 1947 SHINGLES VACCINES (#1) 1987 65+ PNEUMOCOCCAL VACCINE 2002 (1 of 2 - PCV13) PNEUMOCOCCAL 2002 POLYSACCHARIDE VACCINE AGE 65 AND OVER INFLUENZA VACCINE 12/31/2017 Results Not on fileafter 07/28/2017 Insurance Payer Benefit Subscriber ID Type Phone Address Plan / Group [facility] MEDICARE [facility] xxxxxxxxx O MEDICARE COMPLETE Advance Directives Patient has advance care planning documents on file. For more information, arnold ray contact: Gabe Vega [address] [place] [address]
--- NOTE | 2018-07-29 14:56 | NUR ---
1456 LOPRESSOR 5MG 1500 LOPRESSOR 5MG 1504 CARDIZEM 10MG BOLUS
[2018-07-29] MEDS ORDERED: METOPROLOL TARTRATE INJ 1 MG/ML VIAL ONE ×2 (14:57→15:01)
[2018-07-29 15:05] LABS: BASOPHILS % 0.5 % (0.0-1.0); EOSINOPHILS # (AUTO) 0.1 (0.0-0.4); EOSINOPHILS % 2.1 % (0.0-6.0); HEMATOCRIT 43.6 % (38.2-49.6); HEMOGLOBIN 14.7 g/dL (14.0-18.0); LYMPHOCYTES # (AUTO) 1.3 (1.0-3.2); LYMPHOCYTES % 20.7 % (18.0-39.1); MEAN CORPUSCULAR HEMOGLOBIN 33.1 pg (28-32); MEAN CORPUSCULAR HGB CONC 33.7 g/dL (31-35); MEAN CORPUSCULAR VOLUME 98.2 fL (81-99); MONOCYTES # (AUTO) 0.5 (0.2-0.8); MONOCYTES % 8.6 % (4.4-11.3); NEUTROPHILS # (AUTO) 4.2 (2.1-6.9); NEUTROPHILS % 67.6 % (38.7-80.0); PLATELET COUNT 179 x10e3/uL (140-360); RED BLOOD COUNT 4.44 x10e6/uL (4.3-5.7); RED CELL DISTRIBUTION WIDTH 12.9 % (11.7-14.4)
[2018-07-29] MEDS ORDERED: DILTIAZEM HCL VIAL 5 ML ONE (15:05)
[2018-07-29] MEDS ORDERED: DILTIAZEM HCL 5 MG/ML 5 ML VIAL IV STA (15:07)
[2018-07-29] MEDS ORDERED: METOPROLOL TARTRATE INJ 1 MG/ML VIAL IV ONE ×2 (15:15)
[2018-07-29 15:21] LABS: ALBUMIN 2.2 g/dL (3.5-5.0); ALBUMIN/GLOBULIN RATIO 0.7 (0.8-2.0); CALCIUM 9.3 mg/dL (8.4-10.2); CREATININE, SERUM 1.37 mg/dL (0.72-1.25)
[2018-07-29 15:27] LABS: CREATINE KINASE MB 1.3 ng/mL (0-5.0)
[2018-07-29] MEDS ORDERED: DILTIAZEM HCL 5 MG/ML 5 ML VIAL IV ONE (15:30)
[2018-07-29] MEDS ORDERED: SODIUM CHLORIDE 0.9% 500ML 500 ML IV ONE (15:45)
[2018-07-29] MEDS ORDERED: ASPIRIN 81 MG CHEW TAB PO ONE (17:00)
--- OUTSIDE RECORDS SUMMARY | 2018-07-29 17:45 | XMS REPORT | Clinical Summary ---
Author Author [facility] Organization [facility] Address Unknown Phone Unavailable Care Team Providers Care Elder Counselor Name Role Phone Michael Ro DO PCP [...] ID Type Phone Address Plan / Group [facility] MEDICARE [facility] xxxxxxxxx O MEDICARE COMPLETE Advance Directives Patient has advance care planning documents on file. For more information, arnold ray contact: Gabe Vega [address] [place] [address]
--- NOTE | 2018-07-29 18:12 | Diagnostic Imaging Report ---
EXAM: CTA OF THE THORACOABDOMINAL AORTA AND PELVIC ARTERIES INDICATION: Chest pain, rule out dissection ^r/o dissection ^[id number] ^[id number] COMPARISON: Chest radiograph 03/20/2018 and CTA chest 07/14/2015 TECHNIQUE: Multi-detector CT technology was employed. CTA Gated axial imaging of the chest, abdomen, and pelvis was performed after the administration of IV contrast. IV CONTRAST: 100 mL of Isovue-370 ORAL CONTRAST: None COMPLICATIONS: None RADIATION DOSE: Total DLP: 706.1 mGy*cm Estimated effective dose: (DLP x 0.015 x size factor) mSv CTDIvol has been reviewed. It is below the limits set by the Radiation Protocol Committee (RPC). For optimization of anatomic evaluation, multiplanar reconstruction, maximum intensity projections, and advanced 3-D off-line postprocessing were performed on a dedicated stand-alone workstation under the direct supervision of the interpreting physician. FINDINGS: Potential study limitations: None. LINES/ TUBES: None. VASCULAR WITH ADVANCED 3-D OFF-LINE POSTPROCESSING: Aortic valve morphology is trileaflet and contains mild calcifications. The thoracic aorta is normal in course, caliber, and contour. There is no acute aortic pathology, such as dissection, intramural hematoma, or contained rupture. Aortic plaques: None, mild, moderate, severe. The arch vessel branching pattern is conventional. All of the arch branch vessels appear widely patent in their proximal portions. Abdominal aortic aneurysm detail anatomy: Fusiform, eccentric aneurysm of the suprarenal, infrarenal abdominal aorta, which begins and extends down to . The superior neck measures cm and the inferior neck measures cm. The length from the aortic bifurcation to the origin of the external iliac arteries is cm. There is angulation of the aneurysm. The abdominal aorta is normal in course, caliber, and contour. There is no acute aortic pathology . Aortic plaques: Moderate atherosclerotic calcification throughout the abdominal aorta with moderate amount of thrombus in the intra-abdominal segment resulting up to 40% narrowing. Watch Engineer dimensions of the thoracic aorta are as follows: 3.1 x 2.5 cm at the aortic annulus 3.8 x 3.6 cm at the sinuses of Valsalva (the sinotubular junction is preserved) 3.5 cm at the mid ascending aorta 2.9 cm at the distal ascending aorta 2.3 cm at the mid transverse arch 2.4 cm at the proximal descending thoracic aorta 2.4 cm at the diaphragmatic hiatus. The abdominal aorta measures: 2.4 cm at the supramesenteric segment 2.2 cm at the mesenteric segment 2.1 cm at the renal segment 2.2 cm at the mid infrarenal segment 2.2 cm at the aortic bifurcation. The celiac trunk is patent and associated with mild nonobstructing atherosclerotic calcifications. Severe stenosis of the proximal SMA due to a mixed plaque. The YOUSIF is patent. There are single renal arteries bilaterally, both of which appear patent but associated with diffuse atherosclerotic calcification resulting in mild to moderate stenosis on the right but no stenosis on the left. The pelvic arteries are normal in caliber and contour. Patent bilateral common iliac artery stents. There are moderate atherosclerotic changes of the pelvic arteries without significant stenosis. 0.8 cm at the right common iliac artery 0.7 cm at the right external iliac artery 0.9 cm at the left common iliac artery 0.7 cm at the left external iliac artery CHEST: LUNGS AND AIRWAYS: Bilateral lower lobes consolidations with air bronchogram suggestive of atelectasis and/or superimposed pneumonia. Diffuse subpleural reticulation of the lungs with mild honeycombing and groundglass opacities in the visualized upper lobes consistent with pulmonary fibrosis. Diffuse groundglass opacities suggestive of pulmonary edema. Few cystic changes throughout the upper lobes may relate to emphysema. These findings are progressed when compared to 05/13/2016. PLEURA: Large bilateral pleural effusions. There are few pleural-based soft tissue nodule/loculated fluid throughout the left hemithorax. For example: A 18 mm nodule in the left lower lobe on series 4, image 83 measuring 31 Hounsfield units may represent loculated fluid versus soft tissue nodule, new since prior exam. Additional nodularity is seen in the left upper lobe on image 70 measuring 7 mm. Extensive bilateral calcified pleural plaques remain unchanged. HEART AND MEDIASTINUM: The thyroid gland is normal. No mediastinal, hilar or axillary lymphadenopathy. The main pulmonary artery is normal in size. The cardiac chambers demonstrate normal atrioventricular and ventriculoarterial concordance, and systemic and pulmonary venous return. Cardiomegaly. The coronary arteries have normal origins and courses. There are extensive coronary calcifications identified, though this study was not optimized for coronary artery evaluation. Status post CABG. There is no pericardial effusion. ABDOMEN: Hepatic steatosis. The gallbladder, spleen, and pancreas appear normal. The adrenal glands appear normal. Both kidneys are normal in size, shape, and density. There is no abnormal mass or hydronephrosis. Unchanged 3 mm nonobstructing calcified stone in the upper pole of the left kidney on series 2, image 68. A few left renal cysts. PELVIS: There is no significant retroperitoneal adenopathy. No free fluid or free air within the abdomen or pelvis. Scattered diverticulosis throughout the colon. The urinary bladder appears normal. BONES: Intact median sternotomy wires. Multilevel degenerative changes of the thoracolumbar spine. IMPRESSION: 1. Normal size of the thoracic aorta. Moderate atherosclerotic calcification throughout the thoracic aorta. No acute aortic pathology identified. 2. Normal size of the abdominal aorta. Moderate atherosclerotic calcification throughout the abdominal aorta with moderate amount of thrombus in the intra-abdominal segment resulting up to 40% narrowing. No acute abdominal aortic pathology. Patent bilateral common iliac artery stents. 3. Severe stenosis of the proximal SMA. Distal branches are patent. 4. 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 Interval progressive bilateral pulmonary fibrosis. - New large pleural effusions, bilaterally, with mild nodular thickening of the left hemithorax and bilateral lower lobe consolidations may represent multifocal pneumonia. Cannot exclude mesothelioma. Recommend pulmonary consultation. - Bilateral lower lobe consolidation due atelectasis and/or pneumonia. - Nonobstructing left nephrolithiasis, unchanged. Signed by: Dr. Francesca Alfaro M.D. on 07/29/2018 6:08 PM
--- NOTE | 2018-07-29 18:46 | NUR ---
Received patient and alert and responsive, no respiratory distress at this time, VSS- 142/75, P132, Temp 97.6, [id number]%RA, LSC, some SOB on exertion and in bed comfortable at this time, ABSNTND, denies any chest pains, fever, chills, call light within reach and family in the room with patient
[2018-07-29] MEDS ORDERED: SODIUM CHLORIDE 0.9% 100 ML 100 ML ONE (19:11)
[2018-07-29] MEDS ORDERED: IOPAMIDOL 370 MG/ML 200 ML INFUS..BTL INJ ONE (19:11)
[2018-07-29 20:00] VITALS: BP 122/73
[2018-07-29 20:02] VITALS: BP 122/73
--- NOTE | 2018-07-29 20:10 | NUR ---
SPOKE TO DR. MARSHALL COVERING FOR DR. CARBALLO AT THIS TIME REGARDING PT HEART RATE. NEW ORDERS RCV FOR SCHEDULED METOPROLOL PO, PRN METOPROLOL IV AND TO CONTINUE PLAVIX.
[2018-07-29] MEDS: CLOPIDOGREL BISULFATE 75 MG TAB PO SCH (20:43)
[2018-07-29] MEDS: METOPROLOL TARTRATE 25 MG TAB PO SCH (20:43)
--- NOTE | 2018-07-29 21:07 | NUR ---
SPOKE TO DR. Migdalia ROUSSEAU AT THIS TIME REGARDING PT HOME MED. NEW ORDERS RCV TO CONTINUE HOME MEDS.
[2018-07-29] MEDS ORDERED: PRAVASTATIN SOD40 MG PO (21:25)
[2018-07-29] MEDS ORDERED: COLACE100 MG PO (21:25)
[2018-07-29] MEDS ORDERED: NITROGLYCERIN0.4 MG SL (21:25)
[2018-07-29] MEDS: MELATONIN 3 MG TAB PO SCH (23:00)
[2018-07-29] MEDS ORDERED: NITROGLYCERIN 0.4 MG SUBL SL PRN (23:00)
[2018-07-29] MEDS ORDERED: DOCUSATE SODIUM 100 MG CAP PO PRN (23:00)
[2018-07-29] MEDS: PRIMIDONE 50 MG TAB PO SCH (23:26)
[2018-07-30] VITALS (8 sets, daily range): BP systolic 98–130; BP diastolic 52–82
[2018-07-30 00:07] LABS: CREATINE KINASE MB 1.1 ng/mL (0-5.0)
[2018-07-30] MEDS: METOPROLOL TARTRATE INJ 1 MG/ML VIAL IV PRN ×2 (05:04→17:30)
[2018-07-30 06:27] LABS: BASOPHILS % 0.3 % (0.0-1.0); EOSINOPHILS # (AUTO) 0.2 (0.0-0.4); EOSINOPHILS % 2.7 % (0.0-6.0); HEMATOCRIT 36.4 % (38.2-49.6); HEMOGLOBIN 12.4 g/dL (14.0-18.0); LYMPHOCYTES # (AUTO) 1.4 (1.0-3.2); LYMPHOCYTES % 22.9 % (18.0-39.1); MEAN CORPUSCULAR HEMOGLOBIN 33.4 pg (28-32); MEAN CORPUSCULAR HGB CONC 34.1 g/dL (31-35); MEAN CORPUSCULAR VOLUME 98.1 fL (81-99); MONOCYTES # (AUTO) 0.5 (0.2-0.8); NEUTROPHILS # (AUTO) 3.8 (2.1-6.9); NEUTROPHILS % 64.6 % (38.7-80.0); PLATELET COUNT 143 x10e3/uL (140-360); RED BLOOD COUNT 3.71 x10e6/uL (4.3-5.7); RED CELL DISTRIBUTION WIDTH 13.1 % (11.7-14.4)
[2018-07-30 06:55] LABS: ANION GAP 7.9 mmol/L (8-16); CALCIUM 8.5 mg/dL (8.4-10.2); CHOL/HDL RATIO 7.4 (3.9-4.7); CREATININE, SERUM 1.16 mg/dL (0.72-1.25); POTASSIUM 3.9 mmol/L (3.5-5.1)
[2018-07-30 07:20] LABS: CREATINE KINASE MB 0.8 ng/mL (0-5.0)
[2018-07-30] MEDS: CLOPIDOGREL BISULFATE 75 MG TAB PO SCH (08:55)
[2018-07-30] MEDS: DONEPEZIL HCL 5 MG TAB PO SCH (08:55)
[2018-07-30] MEDS: METOPROLOL TARTRATE 25 MG TAB PO SCH ×2 (08:55→21:41)
[2018-07-30] MEDS: ASPIRIN 325 MG TAB PO SCH (08:56)
[2018-07-30] MEDS: SERTRALINE HCL 50 MG TAB PO SCH (08:56)
[2018-07-30] MEDS: Ubidecarenone (Coq-10) 100 MG PO SCH (08:56)
[2018-07-30] MEDS: TAMSULOSIN HCL 0.4 MG CAP PO SCH (08:56)
[2018-07-30] MEDS: PANTOPRAZOLE SOD 40 MG TABEC PO SCH (08:56)
[2018-07-30] MEDS ORDERED: GLIPIZIDE 5 MG TAB PO SCH (09:00)
[2018-07-30] MEDS ORDERED: CLOPIDOGREL BISULFATE 75 MG TAB PO SCH (09:00)
[2018-07-30] MEDS ORDERED: CEFTRIAXONE SOD 1 GM/NS 50 ML 50 ML IV ONE (11:05)
[2018-07-30] MEDS ORDERED: AZITHROMYCIN 500MG/NS 250 ML 250 ML ONE (11:05)
[2018-07-30] MEDS ORDERED: ACETAMINOPHEN 325 MG TAB ONE (11:05)
[2018-07-30] MEDS: ACETAMINOPHEN 325 MG TAB PO PRN (11:25)
[2018-07-30] MEDS: CEFTRIAXONE SOD 1 GM/NS 50 ML 50 ML IV SCH (11:25)
[2018-07-30] MEDS: INSULIN REGULAR, HUMAN 100 UNIT/1 ML 3ML VIAL SQ SCH ×3 (11:30→21:00)
--- NOTE | 2018-07-30 11:30 | NUR ---
SPOKE TO MD Rebeka ROUSSEAU REGARDING US CALLING AND STATING THORACENTESIS CANNOT BE DONE DUE TO PT BEING ON PLAVIX. STATES TO RELAY MESSAGE TO CARDIAC
[2018-07-30] MEDS: AZITHROMYCIN 250MG/NS 100 ML 100 ML IV SCH (11:57)
[2018-07-30 11:59] LABS: INR 0.94; PARTIAL THROMBOPLASTIN TIME 30.4 seconds (23.8-35.5); PROTHROMBIN TIME 13.4 seconds (11.9-14.5)
--- NOTE | 2018-07-30 12:20 | NUR ---
PAGED MD Rebeka ROUSSEAU REGARDING PT BS OF [phone] AWAITING FOR CALL BACK
[2018-07-30] MEDS ORDERED: DEXTROSE 50% SYRINGE 50 ML IV PRN (12:30)
[2018-07-30] MEDS ORDERED: DEXTROSE 50% SYRINGE 50 ML IV ONE (12:47)
--- NOTE | 2018-07-30 13:07 | NUR ---
PT NOON SUGAR REGARDING READD 368. AROUND 1240 PT REPORTED FEELING NAUSEAS AND WEAK. BLOOD GLUCOSE RETAKEN AT THIS TIME READ 49 AND THEN 52 AROUND 2-5 MINUTES LATER. DEXTROSE GIVEN VIA IV SITE. V/S TAKEN AND READ 106/52 WITH TELEMETRY READING A FIB IN BETWEEN A RATE OF 110-130S AND A SATURATION OF 99% ON 3L. WILL MONITOR PT CLOSELY . PAGED MD Staley ROUSSEAU REGARDING INCIDENT
--- NOTE | 2018-07-30 13:10 | NUR ---
pageiza siddiqi regarding thoracentesis hold due to plavix use of today. awaiting for call back
[2018-07-30 13:53] LABS: CREATINE KINASE MB 0.5 ng/mL (0-5.0)
[2018-07-30] MEDS ORDERED: DEXTROSE 10% 1,000 ML IV SCH (16:30)
--- NOTE | 2018-07-30 16:30 | NUR ---
jonathan landry rounded again on pt and is aware of pt bs reading dropping . new orders to start fluids with dextrose given. and stop oral glipizide.
[2018-07-30] MEDS: MELATONIN 3 MG TAB PO SCH (21:00)
[2018-07-30] MEDS: PRIMIDONE 50 MG TAB PO SCH (21:40)
[2018-07-30] MEDS: PRAVASTATIN 20 MG TAB PO SCH (21:41)
[2018-07-31] VITALS (10 sets, daily range): BP systolic 97–121; BP diastolic 66–85
[2018-07-31] MEDS: ACETAMINOPHEN 325 MG TAB PO PRN (05:51)
[2018-07-31 05:57] LABS: BASOPHILS % 0.4 % (0.0-1.0); EOSINOPHILS # (AUTO) 0.2 (0.0-0.4); HEMATOCRIT 36.1 % (38.2-49.6); HEMOGLOBIN 11.9 g/dL (14.0-18.0); LYMPHOCYTES # (AUTO) 1.6 (1.0-3.2); LYMPHOCYTES % 28.1 % (18.0-39.1); MEAN CORPUSCULAR HEMOGLOBIN 32.7 pg (28-32); MEAN CORPUSCULAR VOLUME 99.2 fL (81-99); MONOCYTES # (AUTO) 0.5 (0.2-0.8); MONOCYTES % 8.1 % (4.4-11.3); NEUTROPHILS # (AUTO) 3.4 (2.1-6.9); PLATELET COUNT 146 x10e3/uL (140-360); RED BLOOD COUNT 3.64 x10e6/uL (4.3-5.7)
[2018-07-31 06:14] LABS: ANION GAP 7.9 mmol/L (8-16); BLOOD UREA NITROGEN 21 mg/dL (7-26); BUN/CREATININE RATIO 18 (6-25); CALCIUM 8.1 mg/dL (8.4-10.2); CARBON DIOXIDE 24 mmol/L (22-29); CHLORIDE 108 mmol/L (98-107); CREATININE, SERUM 1.14 mg/dL (0.72-1.25); EST GLOMERULAR FILTRATION RATE > 60 ML/MIN (60-); GLUCOSE 142 mg/dL (74-118); POTASSIUM 3.9 mmol/L (3.5-5.1); SODIUM 136 mmol/L (136-145)
[2018-07-31] MEDS: INSULIN REGULAR, HUMAN 100 UNIT/1 ML 3ML VIAL SQ SCH ×4 (07:30→21:00)
[2018-07-31] MEDS: ASPIRIN 325 MG TAB PO SCH (09:00)
[2018-07-31] MEDS: Ubidecarenone (Coq-10) 100 MG PO SCH (09:00)
[2018-07-31] MEDS ORDERED: FUROSEMIDE INJ 10 MG/ML 2 ML VIAL IV ONE (09:30)
[2018-07-31] MEDS: PANTOPRAZOLE SOD 40 MG TABEC PO SCH (10:08)
[2018-07-31] MEDS: SERTRALINE HCL 50 MG TAB PO SCH (10:09)
[2018-07-31] MEDS: DONEPEZIL HCL 5 MG TAB PO SCH (10:09)
[2018-07-31] MEDS: METOPROLOL TARTRATE 25 MG TAB PO SCH ×2 (10:09→21:55)
[2018-07-31] MEDS: TAMSULOSIN HCL 0.4 MG CAP PO SCH (10:09)
[2018-07-31] MEDS: METOPROLOL TARTRATE INJ 1 MG/ML VIAL IV PRN (12:18)
[2018-07-31] MEDS: CEFTRIAXONE SOD 1 GM/NS 50 ML 50 ML IV SCH (12:19)
--- NOTE | 2018-07-31 14:53 | Consultation ---
DATE OF CONSULTATION: 07/31/2018 Cardiology Consultation REASON FOR CONSULT: Chronic systolic heart failure, atrial fibrillation, coronary artery disease, and peripheral arterial disease. CHIEF COMPLAINT: Shortness of breath. HISTORY OF PRESENT ILLNESS: The patient is an 83-year-old man, who is known to our service. He has history of peripheral arterial disease as well as coronary artery disease with stent placements in the past, most recent one was more than two years ago. He has history of chronic systolic heart failure and chronic atrial fibrillation. He presents with worsening lower extremity edema and shortness of breath over past several weeks. Denies any chest pain. Reports PND, orthopnea, and lower extremity edema. REVIEW OF SYSTEMS: As above, otherwise negative. PAST MEDICAL HISTORY: 1. Atrial fibrillation. 2. Chronic systolic heart failure. 3. Coronary artery disease. 4. Peripheral arterial disease. 5. Diabetes. 6. Hypertension. 7. Hyperlipidemia. SOCIAL HISTORY: The patient does not smoke, drink, or abuse drugs. FAMILY HISTORY: No family history of early CAD or sudden cardiac . OUTPATIENT MEDICATIONS: Reviewed. ALLERGIES: NO KNOWN DRUG ALLERGIES. OBJECTIVE: VITAL SIGNS: Temperature 96.4, pulse 99, blood pressure 120/81, saturating 99% on nasal cannula. GENERAL: Thin elderly white man, in no acute distress. CARDIOVASCULAR: Irregular rate and rhythm, tachycardic. No murmurs, rubs, or gallops. Palpable carotid pulses. Palpable radial pulses. LUNGS: Decreased breath sounds in bilateral bases. ABDOMEN: Soft, nontender, nondistended. NEURO AND PSYCH: Alert and oriented to person, place, and time. Normal affect. INPATIENT MEDICATIONS: Reviewed. LABORATORY DATA: Reviewed. IMAGING DATA: Reviewed. Chest CT shows bilateral pleural effusions. TELEMETRY DATA: Reviewed, shows atrial fibrillation with RVR. Echocardiogram reviewed, shows LVEF of 20% to 25%, no severe valvular abnormalities. ASSESSMENT: 1. Acute on chronic systolic heart failure exacerbation. 2. Coronary artery disease, status post percutaneous coronary intervention many years ago. 3. Peripheral arterial disease, status post peripheral intervention more than two years ago. 4. Bilateral pleural effusions. 5. Hypoglycemia. 6. Hyperlipidemia. PLAN: We will start the patient on IV Lasix 40 mg b.i.d. for his congestive heart failure. Increase metoprolol to 25 mg q.6 hours for improved rate control of his atrial fibrillation. Continue other medications per primary team. Okay to stop Plavix in preparation for thoracentesis as his PCI was more than two years ago. Continue aspirin daily. Thank you for this consult. We will continue to follow. MD AMY Rueda/ZAIN /[id number]
[2018-07-31] MEDS: AZITHROMYCIN 250MG/NS 100 ML 100 ML IV SCH (16:35)
[2018-07-31] MEDS: FUROSEMIDE INJ 10 MG/ML 4 ML VIAL IV SCH (21:54)
[2018-07-31] MEDS: PRAVASTATIN 20 MG TAB PO SCH (21:55)
[2018-07-31] MEDS: MELATONIN 3 MG TAB PO SCH (21:55)
[2018-07-31] MEDS: PRIMIDONE 50 MG TAB PO SCH (21:55)
--- NOTE | 2018-07-31 21:55 | NUR ---
HR 133 b/min. Patient is asymptomatic. No complain of chest pain. Due Metoprolol given.
--- NOTE | 2018-07-31 23:00 | NUR ---
HR rechecked 105b/min. Patient has no complains.
[2018-08-01] VITALS (7 sets, daily range): BP systolic 94–129; BP diastolic 60–87
[2018-08-01] MEDS: INSULIN REGULAR, HUMAN 100 UNIT/1 ML 3ML VIAL SQ SCH ×4 (07:30→21:00)
[2018-08-01] MEDS: PANTOPRAZOLE SOD 40 MG TABEC PO SCH (07:30)
[2018-08-01] MEDS: METOPROLOL TARTRATE 25 MG TAB PO SCH ×2 (09:00→21:22)
[2018-08-01] MEDS: Ubidecarenone (Coq-10) 100 MG PO SCH (09:00)
[2018-08-01] MEDS: FUROSEMIDE INJ 10 MG/ML 4 ML VIAL IV SCH ×2 (09:33→21:21)
[2018-08-01] MEDS: ASPIRIN 325 MG TAB PO SCH (09:33)
[2018-08-01] MEDS: TAMSULOSIN HCL 0.4 MG CAP PO SCH (09:33)
[2018-08-01] MEDS: CEFTRIAXONE SOD 1 GM/NS 50 ML 50 ML IV SCH (09:33)
[2018-08-01] MEDS: SERTRALINE HCL 50 MG TAB PO SCH (09:33)
[2018-08-01] MEDS: DONEPEZIL HCL 5 MG TAB PO SCH (09:33)
[2018-08-01] MEDS: AZITHROMYCIN 250MG/NS 100 ML 100 ML IV SCH (10:30)
[2018-08-01] MEDS ORDERED: SODIUM CHLORIDE 0.9% 250ML 250 ML ONE (11:33)
[2018-08-01 15:21] LABS: ANION GAP 11.4 mmol/L (8-16); CALCIUM 8.2 mg/dL (8.4-10.2); CREATININE, SERUM 1.31 mg/dL (0.72-1.25); POTASSIUM 4.4 mmol/L (3.5-5.1)
--- NOTE | 2018-08-01 15:48 | Progress Note ---
DATE: Internal Medicine Progress Note SUBJECTIVE: He is doing well. PHYSICAL EXAMINATION: VITAL SIGNS: Blood pressure 110/78, temperature 96.6, heart rate is 107 per minute, respiratory rate is 20 per minute, oxygen saturation 98%. HEART: Shows regular rhythm. No murmur or added sounds. LUNGS: Clear bilaterally. ABDOMEN: Soft. EXTREMITIES: Show 2+ bilateral pedal edema. LABORATORY DATA: BMP; sodium 136, potassium 3.9, chloride 108, CO2 of 24, BUN 21, creatinine 1.14, glucose 142. CBC; white blood count 5.59, hemoglobin 11.9, hematocrit 36.1, platelet count 146,000. PT 13.4, INR 0.94, PTT 30.4. AST 17, ALT 11, total bilirubin 0.6, alkaline phosphatase 77. FINAL IMPRESSION: 1. Bilateral pleural effusion. 2. Bilateral pneumonia. 3. Chronic atrial fibrillation. 4. History of coronary artery disease. 5. Pulmonary fibrosis . 6. Hypertension. 7. Benign prostatic hypertrophy. 8. Gastroesophageal reflux disease. PLAN OF TREATMENT: Continue with Zithromax 250 mg IV once a day, ceftriaxone 2 g IV once a day, metoprolol 25 mg IV q.6 hours as needed for tachycardia. Continue Flomax 0.4 mg daily. Continue furosemide 40 mg twice a day, Plavix 75 mg daily having placed on hold because of thoracentesis on Friday. Continue nitroglycerin 0.4 mg q.5 minutes p.r.n. for chest pain, aspirin 325 mg daily, Tylenol 650 mg q.4 hours as needed, Colace 100 mg daily. primidone 50 mg at bedtime, Protonix 40 mg daily. as needed for hypoglycemia. Aricept 5 mg daily, sertraline 25 mg daily, Pravachol 40 mg daily. Monitor blood sugar a.c. and h.s. The case has been discussed with his family at bedside. Time spent 45 minutes. MD NIKKI Gray/ZAIN /[id number]
--- NOTE | 2018-08-01 16:33 | NUR ---
Orders per Dr. Barbosa for Tylenol number 3 for back pain management.
[2018-08-01] MEDS: ACETAMINOPHEN/CODEINE 300MG - 30MG TAB PO PRN (16:50)
--- NOTE | 2018-08-01 17:03 | Progress Note ---
DATE: 08/01/2018 Cardiology Progress Note SUBJECTIVE: The patient denies chest pain; however, he still has dyspnea on exertion. OBJECTIVE: VITAL SIGNS: Temperature 96.8 degrees, pulse 107, respiratory rate 19, blood pressure 95/60, and oxygen saturation 96% on 2 L nasal cannula. GENERAL: Elderly man, in no acute distress, awake, and alert. LUNGS: Crackles at bilateral bases, otherwise clear to auscultation. CARDIOVASCULAR: Normal rate. Regular rhythm. No murmur. Normal S1, S2. ABDOMEN: Soft, nontender. EXTREMITIES: 2+ pitting edema in bilateral lower extremities. CARDIAC MEDICATIONS: Lasix 40 mg IV q.12 hours, aspirin 325 mg p.o. daily, and metoprolol tartrate 25 mg p.o. q.12 hours. LABS: Pending. TELEMETRY: Sinus tachycardia. IMPRESSION: 1. Grjng-wb-habtbyn systolic heart failure. 2. Coronary artery disease, status post percutaneous coronary intervention. 3. Peripheral arterial disease, status post peripheral intervention. 4. Bilateral pleural effusions. 5. Hypoglycemia. 6. Hyperlipidemia. 7. Atrial fibrillation. RECOMMENDATIONS: 1. Continue intravenous Lasix. Monitor creatinine closely. 2. Continue current cardiac medications otherwise. Monitor patient closely on telemetry. The patient's Plavix can be held for thoracentesis as his last revascularization was reported more than two years ago. Thank you for this consult. We will continue to follow. Shraddha Nicholson MD ABS/MODL /[id number]
[2018-08-01] MEDS: PRIMIDONE 50 MG TAB PO SCH (21:22)
[2018-08-01] MEDS: MELATONIN 3 MG TAB PO SCH (21:22)
[2018-08-01] MEDS: PRAVASTATIN 20 MG TAB PO SCH (21:22)
[2018-08-01] MEDS: METOPROLOL TARTRATE INJ 1 MG/ML VIAL IV PRN (21:28)
--- NOTE | 2018-08-01 22:29 | NUR ---
Received patient. Patient laying in bed with HOB slightly elevated. Patient denies of pain. No acute distress noted. Patient in stable condition, will continue to monitor.
[2018-08-02] VITALS (8 sets, daily range): BP systolic 91–184; BP diastolic 62–90
[2018-08-02] MEDS: INSULIN REGULAR, HUMAN 100 UNIT/1 ML 3ML VIAL SQ SCH ×4 (07:30→20:28)
[2018-08-02] MEDS: CEFTRIAXONE SOD 1 GM/NS 50 ML 50 ML IV SCH ×2 (08:10→09:10)
[2018-08-02] MEDS: FUROSEMIDE INJ 10 MG/ML 4 ML VIAL IV SCH ×2 (08:30→21:02)
[2018-08-02] MEDS: SERTRALINE HCL 50 MG TAB PO SCH (08:30)
[2018-08-02] MEDS: TAMSULOSIN HCL 0.4 MG CAP PO SCH (08:30)
[2018-08-02] MEDS: DONEPEZIL HCL 5 MG TAB PO SCH (08:30)
[2018-08-02] MEDS: METOPROLOL TARTRATE 25 MG TAB PO SCH ×2 (08:30→21:01)
[2018-08-02] MEDS: ASPIRIN 325 MG TAB PO SCH (08:30)
[2018-08-02] MEDS: PANTOPRAZOLE SOD 40 MG TABEC PO SCH (08:30)
[2018-08-02] MEDS: Ubidecarenone (Coq-10) 100 MG PO SCH (09:00)
[2018-08-02] MEDS: ACETAMINOPHEN/CODEINE 300MG - 30MG TAB PO PRN (09:10)
--- NOTE | 2018-08-02 09:10 | NUR ---
assessment complete no distress noted, updated on poc voiced understanding, co pain to chest denies radiation vs stable(115/81, 131),medicated with prn meds, o2 @ 2 nc, l fa 22g no ss of infiltration noted, no other co voiced call light in reach will continue to monitor
--- NOTE | 2018-08-02 09:20 | NUR ---
PT CO BURNING TO IV SITE, A STREAK OF REDNESS NOTED TO ARM, IV STOPPED, LINE FLUSHED WITH 40CC OF SALINE, WILL NOTIFY ,
--- NOTE | 2018-08-02 09:30 | NUR ---
REDNESS TO ARM GONE, DENIES PAIN/ ITCHING TO ARM, Addendum: 08/02/18 at 0954 by Anahi Gorman RN WILL CONTINUE TO MONITOR
[2018-08-02] MEDS: AZITHROMYCIN 250MG/NS 100 ML 100 ML IV SCH (09:50)
[2018-08-02] MEDS: MEROPENEM 500MG/ NS 50ML 50 ML IV SCH ×2 (12:00→17:45)
--- NOTE | 2018-08-02 12:08 | Progress Note ---
DATE: Internal Medicine Progress Note SUBJECTIVE: The patient is doing well. No significant complaint. He had a reaction today to Zosyn, so Zosyn has to be changed to meropenem. PHYSICAL EXAMINATION: VITAL SIGNS: Blood pressure 115/81, temperature is 95.9, heart rate is 80 per minute, respiratory rate 18 per minute, oxygen saturation 96%. HEART: Show irregularly irregular heart rate. No murmur or added sound. LUNGS: Clear bilaterally. ABDOMEN: Soft. LABORATORY DATA: BMP; sodium 136, potassium 4.4, chloride 103, CO2 of 26, BUN 21, creatinine 1.31, glucose 128. CBC; white blood count 5.58, hemoglobin 11.9, hematocrit 36.1, platelet count 146,000. PT 13.4, INR 0.94, PTT 30.4. AST 17, ALT 11, total bilirubin 0.6, alkaline phosphatase 77. FINAL IMPRESSION: 1. Bilateral pleural effusion. 2. Coronary artery disease. 3. Chronic atrial fibrillation with tachycardia. 4. Bilateral pneumonia. 5. Hypertension. 6. Benign prostatic hypertrophy. PLAN OF TREATMENT: We are going to continue Zithromax 250 mg IV daily, meropenem 500 mg IV q.6 hours. We are going to discontinue the Rocephin because of reaction that he had. Continue metoprolol 25 mg twice a day for heart rate control and 5 mg IV q.6 hours as needed for tachycardia on metoprolol, melatonin 1.5 mg at bedtime, Flomax 0.4 mg daily because of a history of benign prostatic hypertrophy. Continue furosemide 40 mg twice a day, Plavix 75 mg daily, nitroglycerin 0.4 mg sublingual every 5 minutes p.r.n. for chest pain, aspirin 325 mg daily, Tylenol 650 mg q.4 hours as needed. Continue Tylenol q.6 hours as needed for pain, Colace 100 mg daily, primidone 50 mg daily, Protonix 40 mg daily, Aricept 5 mg daily, Zoloft 25 mg daily, pravastatin 40 mg daily, which we are going to place on hold because the patient is on Zithromax. Continue monitoring blood sugar a.c. and h.s. He is supposed to go for thoracentesis tomorrow. MD NIKKI Gray/ZAIN /[id number]
--- NOTE | 2018-08-02 13:30 | NUR ---
spoke with Nuris in radiology re: clarification of thoracentesis, scheduled for Friday
--- NOTE | 2018-08-02 13:40 | NUR ---
Visit made by the Spiritual Care Department Pastoral Visitor, Eliz Alatorre. PV provided pastoral presence, communion, prayer, hospitality, and supportive listening. Pastoral Visitor informed pt/family of the scope of Hardware Engineering Manager Services and availability. XANDER PERSON Manager Social Spiritual Care Department O: [phone] Pager: [phone] ([phone] calling from)
--- NOTE | 2018-08-02 21:00 | NUR ---
PATIENT BLOOD SUGAR 82MG/DL.PATIENT IS ALERT AND ORIENTED. SNACKS OFFERED.
[2018-08-02] MEDS: MELATONIN 3 MG TAB PO SCH (21:02)
[2018-08-02] MEDS: PRIMIDONE 50 MG TAB PO SCH (21:02)
--- NOTE | 2018-08-02 21:57 | NUR ---
BLOOD SUGAR RECHECKED 159MG/DL.
--- NOTE | 2018-08-02 22:39 | NUR ---
RECHECKED HR 108B/MIN, BP 113/75 MMHG. PATIENT IS ASYMPTOMATIC.
[2018-08-03] VITALS (9 sets, daily range): BP systolic 86–135; BP diastolic 56–88
[2018-08-03] MEDS: MEROPENEM 500MG/ NS 50ML 50 ML IV SCH ×5 (00:01→23:30)
--- NOTE | 2018-08-03 01:50 | Progress Note ---
DATE: 08/02/2018 Cardiology Progress Note. SUBJECTIVE: The patient denies chest pain or shortness of breath, however, he still has dyspnea on exertion. OBJECTIVE: VITAL SIGNS: Temperature 95.8 degrees, pulse 131, respiratory rate 19, blood pressure 105/71, oxygen saturation 98%. GENERAL: Elderly man, in no acute distress, awake and alert. LUNGS: Decreased breath sounds in the left base, otherwise clear to auscultation. CARDIOVASCULAR: Tachycardic, irregularly irregular. No murmur. Normal S1, S2. ABDOMEN: Soft, nontender. EXTREMITIES: Trace 2+ pitting edema bilateral lower extremities. CARDIAC MEDICATIONS: Furosemide 40 mg IV q.12 hours, aspirin 325 mg p.o. daily, metoprolol tartrate 50 mg p.o. q.12 hours. LABORATORY DATA: None today. Telemetry, atrial fibrillation with rapid ventricular response. IMPRESSION: 1. Ukhqo-zl-vcfjdri systolic heart failure. 2. Atrial fibrillation with RVR. 3. Coronary artery disease, status post PCI. 4. Peripheral arterial disease, status post peripheral intervention. 5. Bilateral pleural effusion. 6. Hyperlipidemia. 7. Hypoglycemia. RECOMMENDATIONS: Continue intravenous Lasix. Monitor creatinine closely. Titrate up metoprolol given atrial fibrillation with poor rate control. Plavix can be held given his last stent was greater than 2 years prior. The patient will need to be restarted on Plavix as well as anticoagulation for CVA prophylaxis once hemostasis is achieved postprocedure. Thank you for this consult. We will continue to follow. Shraddha Nicholson MD ABS/MODL /[id number]
--- NOTE | 2018-08-03 07:15 | NUR ---
Received patient and walking rounds complete. Patient awake resting in bed at this time, no signs of distress. Call light in reach will continue to monitor.
[2018-08-03] MEDS: INSULIN REGULAR, HUMAN 100 UNIT/1 ML 3ML VIAL SQ SCH ×4 (07:30→21:00)
[2018-08-03] MEDS: DONEPEZIL HCL 5 MG TAB PO SCH (08:15)
[2018-08-03] MEDS: FUROSEMIDE INJ 10 MG/ML 4 ML VIAL IV SCH ×2 (08:15→21:53)
[2018-08-03] MEDS: METOPROLOL TARTRATE 25 MG TAB PO SCH ×2 (08:15→21:25)
[2018-08-03] MEDS: SERTRALINE HCL 50 MG TAB PO SCH (08:15)
[2018-08-03] MEDS: TAMSULOSIN HCL 0.4 MG CAP PO SCH (08:15)
[2018-08-03] MEDS: PANTOPRAZOLE SOD 40 MG TABEC PO SCH (08:15)
[2018-08-03] MEDS: Ubidecarenone (Coq-10) 100 MG PO SCH (08:15)
[2018-08-03] MEDS: ASPIRIN 325 MG TAB PO SCH (08:15)
[2018-08-03] MEDS: ACETAMINOPHEN/CODEINE 300MG - 30MG TAB PO PRN (08:16)
--- NOTE | 2018-08-03 09:30 | NUR ---
Patient A/O X3, even respirations on 2LNC. Bowel sounds active, skin intact, 2+ pitting edema BLE. Patient is ambulatory with standby assist. Left FA 22 gauge IV SL. Tele #18, A FIB. Call light in reach, family at bedside, will continue to monitor.
--- NOTE | 2018-08-03 09:32 | NUR ---
IMM EXPLAINED TO PT, SIGNED BY PT AND ON CHART COPY TO PT IN CARE TRANSITIONS FOLDER
[2018-08-03] MEDS: AZITHROMYCIN 250MG/NS 100 ML 100 ML IV SCH (10:19)
--- NOTE | 2018-08-03 13:59 | Progress Note ---
DATE: Cardiology Progress Note SUBJECTIVE: The patient feels better. Denies any chest pain or shortness of breath. OBJECTIVE: VITAL SIGNS: Temperature is 95.6, heart rate is 100, respirations are 18, blood pressure is 108/73, and oxygen saturation 98% on 2 liters nasal cannula. GENERAL: He is an elderly appearing man, lying comfortably in bed. HEAD: Normocephalic and atraumatic. LUNGS: Diminished breath sounds at the bilateral bases. ABDOMEN: Soft and nontender. CARDIOVASCULAR: Irregularly irregular. Tachycardic. No murmurs. CARDIOVASCULAR MEDICATIONS: Reviewed. LABORATORY DATA: None recent. Telemetry monitoring revealed atrial fibrillation, rapid ventricular response. IMPRESSION: 1. Atrial fibrillation with rapid ventricular response. 2. Vnzcs-sb-vwkwsdb systolic congestive heart failure. 3. Coronary artery disease, status post percutaneous coronary intervention. 4. Peripheral arterial disease, status post intervention. 5. Bilateral pleural effusions. RECOMMENDATIONS: Continue Lasix for diuresis. Continue to monitor his daily creatinine and urinary outputs. Increase metoprolol as tolerated for better rate control. Plavix is being held in preparation for thoracentesis. Once the procedures are completed, we will need to restart anticoagulation and aspirin prior to discharge. Wero Ro DO BM/MODL /[id number]
--- NOTE | 2018-08-03 18:05 | NUR ---
Removed Left FA 22 gauge IV. New IV started in Left FA
[2018-08-03] MEDS: MELATONIN 3 MG TAB PO SCH (21:53)
[2018-08-03] MEDS: PRIMIDONE 50 MG TAB PO SCH (21:53)
[2018-08-04 04:00] VITALS: BP 91/64
[2018-08-04] MEDS: MEROPENEM 500MG/ NS 50ML 50 ML IV SCH ×4 (05:31→23:28)
--- NOTE | 2018-08-04 07:20 | NUR ---
Received patient asleep in bed at this time, no signs of distress. Call light in reach, will continue to monitor.
[2018-08-04] MEDS: INSULIN REGULAR, HUMAN 100 UNIT/1 ML 3ML VIAL SQ SCH ×4 (07:22→20:53)
[2018-08-04] MEDS: ASPIRIN 325 MG TAB PO SCH (07:22)
[2018-08-04] MEDS: METOPROLOL TARTRATE 25 MG TAB PO SCH ×3 (07:24→23:28)
[2018-08-04] MEDS: FUROSEMIDE INJ 10 MG/ML 4 ML VIAL IV SCH ×2 (07:24→21:14)
[2018-08-04] MEDS: Ubidecarenone (Coq-10) 100 MG PO SCH (07:24)
[2018-08-04] MEDS: PANTOPRAZOLE SOD 40 MG TABEC PO SCH (07:25)
[2018-08-04 08:00] VITALS: BP 93/67
--- NOTE | 2018-08-04 08:15 | NUR ---
Patient A/O X3, even respirations on 2LNC. Bowel sounds active, skin intact, 2+ pitting edema in BLE. Tele #18 A-FIB. Patient NPO at this time for thoracentesis this morning. Patient is ambulatory with standby assist. Left FA 20 gauge IV SL. Family at bedside, call light in reach, will continue to monitor.
--- NOTE | 2018-08-04 08:48 | NUR ---
Patient left for thoracentesis at this time via wheelchair.
[2018-08-04 09:15] VITALS: BP 93/67
--- NOTE | 2018-08-04 10:20 | NUR ---
Patient back from thoracentesis. 1600 cc pulled off of right side. Patient comfortable, no signs of distress. Call light in reach, will continue to monitor.
--- NOTE | 2018-08-04 10:23 | Diagnostic Imaging Report ---
PROCEDURE: ULTRASOUND GUIDED THORACENTESIS COMPARISON: [facility], CT, CTA CHEST, 07/29/2018, 16:45. INDICATIONS:RIGHT PLEURAL EFFUSION FINDINGS: After informed consent was obtained, the patient was placed in the sitting position and preliminary ultrasound of the posterior chest identified a safe route into the right pleural effusion. The overlying skin was prepped and draped utilizing full barrier technique sterile fashion. Lidocaine 1% was used for local anesthesia. Under ultrasound guidance, a 5 Turkmen Centeze sheathed needle was advanced into the pleural fluid and 1650 cc's were aspirated. The patient tolerated the procedure well and there were no immediate post-procedural complications. A post-thoracentesis chest radiograph will be obtained. Specimen was sent to the laboratory for culture and sensitivity. CONCLUSION: Uncomplicated ultrasound-guided right thoracentesis with removal of 1,650 cc's non-purulent fluid. Fredy Correa D.O. Dictated by: Fredy Correa D.O. on 08/04/2018 at 10:35 Electronically approved by: Fredy Correa D.O. on 08/04/2018 at 10:35
--- NOTE | 2018-08-04 10:25 | Diagnostic Imaging Report ---
EXAM: CHEST XRAY POST PROCEDURE DATE: 08/04/2018 9:10 AM INDICATION: Post thoracentesis COMPARISON: Chest CT, 07/29/2018; chest x-ray, 03/20/2018 FINDINGS: Lines and tubes: None Heart size normal. Evacuation of right pleural effusion following thoracentesis. Moderate left pleural effusion is present. No pneumothorax allowing for somewhat overpenetrated technique. Nodular density projected on the right lower chest may be nipple shadow. Upper abdomen unremarkable. No acute bony abnormality. Wire sternotomy sutures are present. IMPRESSION: 1. Evacuation of right pleural effusion with no pneumothorax. 2. Moderate left pleural effusion. Likely underlying left lower lobe atelectasis or consolidation. Signed by: Dr. Kristopher Aldridge M.D. on 08/04/2018 10:22 AM
[2018-08-04] MEDS: AZITHROMYCIN 250MG/NS 100 ML 100 ML IV SCH (10:56)
[2018-08-04] MEDS: SERTRALINE HCL 50 MG TAB PO SCH (10:56)
[2018-08-04] MEDS: TAMSULOSIN HCL 0.4 MG CAP PO SCH (10:56)
[2018-08-04] MEDS: DONEPEZIL HCL 5 MG TAB PO SCH (10:56)
[2018-08-04 12:00] VITALS: BP 102/73
[2018-08-04] MEDS ORDERED: DIGOXIN INJ 0.25 MG/ML 2 ML AMP IV NR (12:15)
--- NOTE | 2018-08-04 13:44 | NUR ---
Spoke with Dr. Migdalia Agudelo. Order for left thoracentesis tomorrow.
[2018-08-04 16:18] VITALS: BP 123/72
[2018-08-04] MEDS ORDERED: METOPROLOL TARTRATE INJ 1 MG/ML VIAL IV PRN (17:15)
[2018-08-04] MEDS: METOPROLOL TARTRATE INJ 1 MG/ML VIAL IV PRN (17:30)
[2018-08-04 20:00] VITALS: BP 128/75
--- NOTE | 2018-08-04 20:17 | Progress Note ---
DATE: Cardiology Progress Note SUBJECTIVE: The patient feels better. He received thoracentesis on the right side today. No palpitations, chest pain, and his breathing has improved. OBJECTIVE: VITAL SIGNS: Temperature is 97.4, heart rate is 130, respiratory rate is 18, blood pressure is 132/72, oxygen saturation 94% on 2 L nasal cannula. GENERAL: He is a chronically ill-appearing elderly man lying in bed, no apparent distress. LUNGS: Diminished breath sounds, left greater than right. CARDIOVASCULAR: Irregularly irregular. Tachycardic. ABDOMEN: Soft, nontender. EXTREMITIES: 1+ edema. LABORATORY DATA: Reviewed. None recent. Creatinine was 1.3 on the 2nd. Telemetry monitoring revealed atrial fibrillation with rapid ventricular response. IMPRESSION: 1. Atrial fibrillation with rapid ventricular response. 2. Acute on chronic systolic congestive heart failure. 3. Coronary artery disease, status post percutaneous coronary intervention. 4. Peripheral artery disease, status post intervention. 5. Bilateral pleural effusions. RECOMMENDATIONS: The patient remains tachycardic. He is not receiving his metoprolol due to low blood pressures. We will reduce metoprolol dosage and give a dose of IV digoxin today. Please check BMP to ensure normalization of his creatinine and a normal potassium level. We will hold anticoagulation and dual antiplatelet therapy at this time until procedures are completed. Wero Ro DO BM/MODL /[id number]
[2018-08-04] MEDS: PRIMIDONE 50 MG TAB PO SCH (21:14)
[2018-08-04] MEDS: MELATONIN 3 MG TAB PO SCH (21:14)
[2018-08-04] MEDS: ACETAMINOPHEN/CODEINE 300MG - 30MG TAB PO PRN (23:28)
[2018-08-05] VITALS (8 sets, daily range): BP systolic 99–131; BP diastolic 68–75
[2018-08-05] MEDS: MEROPENEM 500MG/ NS 50ML 50 ML IV SCH ×3 (05:17→17:30)
[2018-08-05] MEDS: PANTOPRAZOLE SOD 40 MG TABEC PO SCH (07:30)
[2018-08-05] MEDS: INSULIN REGULAR, HUMAN 100 UNIT/1 ML 3ML VIAL SQ SCH ×4 (07:30→21:00)
[2018-08-05] MEDS: Ubidecarenone (Coq-10) 100 MG PO SCH (08:12)
[2018-08-05] MEDS: ASPIRIN 325 MG TAB PO SCH (08:12)
[2018-08-05] MEDS: SERTRALINE HCL 50 MG TAB PO SCH (08:12)
[2018-08-05] MEDS: METOPROLOL TARTRATE 25 MG TAB PO SCH ×3 (08:12→21:12)
[2018-08-05] MEDS: TAMSULOSIN HCL 0.4 MG CAP PO SCH (08:12)
[2018-08-05] MEDS: DONEPEZIL HCL 5 MG TAB PO SCH (08:12)
[2018-08-05] MEDS: FUROSEMIDE INJ 10 MG/ML 4 ML VIAL IV SCH ×2 (09:17→21:11)
[2018-08-05 10:20] LABS: BLOOD UREA NITROGEN 20 mg/dL (7-26); BUN/CREATININE RATIO 19 (6-25); CALCIUM 8.2 mg/dL (8.4-10.2); CARBON DIOXIDE 30 mmol/L (22-29); CHLORIDE 100 mmol/L (98-107); CREATININE, SERUM 1.06 mg/dL (0.72-1.25); EST GLOMERULAR FILTRATION RATE > 60 ML/MIN (60-); GLUCOSE 97 mg/dL (74-118); SODIUM 134 mmol/L (136-145)
[2018-08-05] MEDS: AZITHROMYCIN 250MG/NS 100 ML 100 ML IV SCH (10:51)
--- NOTE | 2018-08-05 16:02 | Diagnostic Imaging Report ---
Procedure: Ultrasound-guided left diagnostic and therapeutic thoracentesis. fire production operator: Ammon Fajardo MD Pre-operative diagnosis: Large left pleural effusion Post-operative diagnosis: Resolution of left sided pleural effusion Conscious Sedation: None Additional Medications: Lidocaine 1% for local anesthesia Contrast used: None Estimated blood loss: <5 cc Blood proximal administered: None Specimens: 900 cc serous fluid Implants: None Condition at completion: Stable Disposition: Inpatient DISCUSSION: Informed consent was obtained and documented in the medical record. The patient was placed in the sitting position on the sonographic table. The left posterolateral chest wall was prepped and draped in the standard sterile fashion. A suitable percutaneous intercostal approach to the left pleural space was identified and the overlying skin was infiltrated with 1% lidocaine for local anesthesia. Large left pleural effusion was identified on ultrasound. Then under continuous sonographic guidance, a 5 Egyptian Yueh needle catheter was advanced into the pleural space. The catheter was advanced off the needle and connected to vacuum bottle with subsequent evacuation of 900 cc of serous fluid. The catheter was removed and a sterile, occlusive dressing was applied. Postprocedure sonographic image showed resolved effusion. The patient tolerated the procedure well without immediate complication. Sample was sent to lab. IMPRESSION: Successful ultrasound-guided diagnostic and therapeutic left thoracentesis with evacuation of 900 cc of serous fluid. Signed by: Dr. Ammon Fajardo MD on 08/05/2018 3:59 PM
--- NOTE | 2018-08-05 16:09 | Diagnostic Imaging Report ---
EXAMINATION: CHEST XRAY POST PROCEDURE INDICATION: Status post thoracentesis. COMPARISON: Chest radiograph 08/04/[address] chest 07/29/2018. FINDINGS: TUBES and LINES: None. LUNGS: Interval reaeration within the left lower lung. There are patchy opacities at the lung bases. No new consolidation. No evidence of pulmonary edema. PLEURA: Interval near resolution of left-sided pleural effusion, now trace. No evidence of pneumothorax. Pleural calcifications are noted. HEART AND MEDIASTINUM: The cardiomediastinal silhouette is unremarkable. Atherosclerotic calcification of the aortic arch. BONES AND SOFT TISSUES: No acute osseous abnormality. Status post median sternotomy. UPPER ABDOMEN: No free air under the diaphragm. IMPRESSION: Status post interval left thoracentesis with near resolution of left-sided pleural effusion. No evidence of pneumothorax. Improved aeration in the left lower lung. Patchy opacities at the lung bases could represent atelectasis or pneumonia in the appropriate clinical setting. Follow-up imaging in 6-8 weeks is suggested to assess for resolution. Signed by: Dr. Ammon Fajardo MD on 08/05/2018 4:05 PM
--- NOTE | 2018-08-05 20:21 | Progress Note ---
DATE: Cardiology Progress Note SUBJECTIVE: The patient feels better. Denies any chest pain, palpitations, or shortness of breath. OBJECTIVE: VITAL SIGNS: Temperature is 96.6, heart rate is 85, respirations are 17, blood pressure is 101/74, oxygen saturation 99% on 2 L nasal cannula. GENERAL: He is an elderly man, in no apparent distress. LUNGS: Diminished breath sounds at bilateral bases. CARDIOVASCULAR: Irregularly irregular. Normal rate. ABDOMEN: Soft, nontender. EXTREMITIES: Trace edema. LABORATORY DATA: All laboratory data reviewed. Creatinine is 1.06, potassium is 4. Telemetry monitoring revealed occasional atrial fibrillation with rapid ventricular response. ASSESSMENT AND PLAN: 1. Atrial fibrillation with controlled ventricular response. 2. Chronic systolic congestive heart failure. 3. Coronary artery disease. 4. Peripheral arterial disease. 5. Bilateral pleural effusions. The patient's heart rate is better controlled. Continue current cardiovascular medications. If the patient develops rapid ventricular rate again, you can give 0.25 mg of digoxin. The patient has a normal creatinine and potassium level. The patient's blood pressure is on the low side. If continues with atrial fibrillation with RVR, may consider amiodarone treatment. We will need to discuss anticoagulation once procedures are completed. DO AMBER Nickerson/JAVONL /[id number]
[2018-08-05] MEDS: PRIMIDONE 50 MG TAB PO SCH (21:12)
[2018-08-05] MEDS: MELATONIN 3 MG TAB PO SCH (21:12)
--- NOTE | 2018-08-05 21:46 | NUR ---
Elevated HR noted 134b/min. Due metoprolol given.
[2018-08-06] VITALS (8 sets, daily range): BP systolic 90–117; BP diastolic 58–80
[2018-08-06] MEDS: MEROPENEM 500MG/ NS 50ML 50 ML IV SCH ×4 (05:56→17:12)
[2018-08-06] MEDS: PANTOPRAZOLE SOD 40 MG TABEC PO SCH (07:30)
[2018-08-06] MEDS: INSULIN REGULAR, HUMAN 100 UNIT/1 ML 3ML VIAL SQ SCH ×4 (07:30→20:54)
[2018-08-06] MEDS: Ubidecarenone (Coq-10) 100 MG PO SCH (09:00)
[2018-08-06] MEDS: FUROSEMIDE INJ 10 MG/ML 4 ML VIAL IV SCH ×2 (09:52→20:53)
[2018-08-06] MEDS: DONEPEZIL HCL 5 MG TAB PO SCH (09:53)
[2018-08-06] MEDS: SERTRALINE HCL 50 MG TAB PO SCH (09:53)
[2018-08-06] MEDS: TAMSULOSIN HCL 0.4 MG CAP PO SCH (09:53)
[2018-08-06] MEDS: ASPIRIN 325 MG TAB PO SCH (09:53)
[2018-08-06] MEDS: METOPROLOL TARTRATE 25 MG TAB PO SCH ×2 (09:54→20:53)
--- NOTE | 2018-08-06 10:31 | NUR ---
Rounds by cumulative effects analyst and orders for LHC to be done later this morning and patient didn't eat breakfast but was notified patient had his medications this morning, will go ahead and obtain consent.
--- NOTE | 2018-08-06 11:15 | NUR ---
Patient signed consent for LHC at this time, VSS, denies any chest pains, in room with daughter, will monitor.
[2018-08-06] MEDS: AZITHROMYCIN 250MG/NS 100 ML 100 ML IV SCH (11:16)
[2018-08-06] MEDS ORDERED: IOPAMIDOL 370 MG/ML 200 ML INFUS..BTL INJ ONE ×3 (13:25→14:43)
[2018-08-06] MEDS ORDERED: HEPARIN SOD/SOD CHLORIDE 2,000 ML ONE (13:25)
[2018-08-06] MEDS ORDERED: LIDOCAINE HCL 1% LOCAL INJ 20 ML VIAL ONE (13:25)
[2018-08-06] MEDS ORDERED: VERAPAMIL HCL 2.5 MG/ML 2 ML VIAL ONE (13:30)
[2018-08-06] MEDS ORDERED: FENTANYL CITRATE/PF 100MCG/2 ML INJ ONE (13:30)
[2018-08-06] MEDS ORDERED: MIDAZOLAM HCL 2 MG/2 ML VIAL ONE (13:30)
[2018-08-06] MEDS ORDERED: SODIUM CHLORIDE 0.9% 1000ML 1,000 ML ONE (13:31)
--- NOTE | 2018-08-06 13:39 | NUR ---
Patient picked up at this time for procedure.
[2018-08-06] MEDS ORDERED: METOPROLOL TARTRATE INJ 1 MG/ML VIAL ONE (14:24)
--- NOTE | 2018-08-06 15:12 | NUR ---
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 Bed rest for 2 hours and will monitor.
--- NOTE | 2018-08-06 15:51 | NUR ---
CASE MANAGEMENT INITIAL ASSESSMENT Solar Tech to bedside to discuss plan of care with patient/family. CM/SW role and care transitions discussed. Anticipated discharge plan discussed along with duration of care. CM/SW discussed patients right to make decisions in care. CM work hours given. Patient lives: PATIENT LIVES IN [facility] STORY HOME WITH [facility] Admit/Transfer: ED Hospital/ER visits since last admit: NONE POA/Emergency contact: - JOHNNY SALAZAR [phone] Current/Previous Home Health: UNABLE TO REMEMBER NAME OF COMPANY PCP/Follow-up Care: DR. CARBALLO Current/Previous DME: JENNIFER VILLALOBSO A READMIT Medications (referring to index hospitalization or the first time you were in the hospital) a. Were changes made in your medications when you were in the hospital on [date of index hospitalization]? Yes No Not sure Explain: Note: If no or not sure, please skip to question d b. Did you understand the changes? Yes No Explain: c. Were you able to obtain your new medications right away? Yes Non/a SNF only Explain: d. Were you able to take your medications like the doctor wanted you to? Yes No Explain: e. Did the hospital give you an accurate, easy to understand list of medications when you left? Yes No n/a SNF only Explain: Scale of 1-10 how comfortable does patient feel with disease management in outpatient setting: Other Services: UNABLE TO REMEMBER NAME Employment Status: RETIRED Areas of Concerns: NONE AT THIS TIME Referral Needs: NONE AT THIS TIME Education Needs: CARDIAC HEALTH IMM/GOTTI given and signed (if applicable): IMM Goal for discharge: DISCHARGE HOME WITH NO NEEDS CM left business card at the bedside with contact information. Name and number was also written on the patients whiteboard. Patient verbalized understanding of discussion. CM will follow-up with ongoing discharge and transition of care needs.
[2018-08-06] MEDS ORDERED: DIGOXIN 0.25 MG TAB PO SCH (17:00)
[2018-08-06] MEDS: DIGOXIN 0.25 MG TAB PO SCH (17:42)
--- NOTE | 2018-08-06 19:21 | NUR ---
Patient's bed tolerated bed rest right groin area intact and no hematoma, rounds done at this time.
--- NOTE | 2018-08-06 19:51 | Progress Note ---
DATE: SUBJECTIVE: The patient is feeling overall better. Denies any chest pain or shortness of breath. OBJECTIVE: VITAL SIGNS: Temperature is 96, heart rate is 109, blood pressure is 117/80, oxygen saturation 96% on 2 L of nasal cannula, respirations are 17. GENERAL: He is an elderly male, lying comfortably in bed. CARDIOVASCULAR: Irregularly irregular, tachycardic. LUNGS: Diminished breath sounds at bilateral bases. ABDOMEN: Soft, nontender. CARDIOVASCULAR MEDICATIONS: Reviewed. LABORATORY DATA: Creatinine from yesterday was 1.06 with a potassium of 4. Cardiac catheterization today revealed severe [place] vessel coronary artery disease with patent grafts to the LAD, diagonal, and RCA. ASSESSMENT AND PLAN: 1. Atrial fibrillation with rapid ventricular response. 2. Kyjqk-kk-opejbbl systolic congestive heart failure. 3. Coronary artery disease status post coronary artery bypass graft surgery and percutaneous graft interventions. 4. Peripheral arterial disease status post intervention. 5. Bilateral pleural effusions. RECOMMENDATIONS: The patient continues to have episodes of rapid ventricular response. We will start digoxin as his potassium and creatinine were normal. Continue metoprolol as he can tolerate. May require amiodarone. Check a BNP in the morning. Cardiac catheterization today revealed severe [place] vessel coronary artery disease with patent grafts. No intervention is required at this point in time. We will need to resume anticoagulation as all procedures have been done likely in the form of Eliquis and aspirin. DO AMBER Nickerson/MODL /[id number]
[2018-08-06] MEDS: MELATONIN 3 MG TAB PO SCH (20:53)
[2018-08-06] MEDS: PRIMIDONE 50 MG TAB PO SCH (20:53)
[2018-08-07] VITALS: BP 125/59
[2018-08-07] MEDS: MEROPENEM 500MG/ NS 50ML 50 ML IV SCH ×3 (00:06→12:00)
[2018-08-07] MEDS: ACETAMINOPHEN/CODEINE 300MG - 30MG TAB PO PRN (00:09)
[2018-08-07 04:00] VITALS: BP 104/64
[2018-08-07 06:09] LABS: ANION GAP 8.9 mmol/L (8-16); BLOOD UREA NITROGEN 24 mg/dL (7-26); BUN/CREATININE RATIO 24 (6-25); CALCIUM 8.6 mg/dL (8.4-10.2); CARBON DIOXIDE 30 mmol/L (22-29); CHLORIDE 98 mmol/L (98-107); CREATININE, SERUM 0.98 mg/dL (0.72-1.25); EST GLOMERULAR FILTRATION RATE > 60 ML/MIN (60-); GLUCOSE 104 mg/dL (74-118); POTASSIUM 3.9 mmol/L (3.5-5.1); SODIUM 133 mmol/L (136-145)
[2018-08-07 06:22] LABS: DIGOXIN 0.51 ng/mL (0.8-2.0)
--- NOTE | 2018-08-07 07:24 | NUR ---
Received patient awake at this time, no signs of distress. Call light in reach will continue to monitor.
[2018-08-07] MEDS: INSULIN REGULAR, HUMAN 100 UNIT/1 ML 3ML VIAL SQ SCH ×3 (07:30→16:22)
[2018-08-07 08:23] VITALS: BP 98/63
[2018-08-07] MEDS: PANTOPRAZOLE SOD 40 MG TABEC PO SCH (08:58)
[2018-08-07] MEDS: DONEPEZIL HCL 5 MG TAB PO SCH (08:58)
[2018-08-07] MEDS: ASPIRIN 325 MG TAB PO SCH (08:58)
[2018-08-07] MEDS: TAMSULOSIN HCL 0.4 MG CAP PO SCH (08:58)
[2018-08-07] MEDS: FUROSEMIDE INJ 10 MG/ML 4 ML VIAL IV SCH (08:59)
[2018-08-07] MEDS: METOPROLOL TARTRATE 25 MG TAB PO SCH (08:59)
[2018-08-07] MEDS: Ubidecarenone (Coq-10) 100 MG PO SCH (08:59)
[2018-08-07] MEDS: SERTRALINE HCL 50 MG TAB PO SCH (08:59)
--- NOTE | 2018-08-07 09:00 | NUR ---
Patient A/O X3, even respirations on RA. Bowel sounds active, skin intact, 1+ non-pitting edema in feet. Right groin dressing dry/intact, no bleeding. Left FA 20 gauge IV SL. Tele #[address]/AFIB. Patient is ambulatory with standby assist. Call light in reach, will continue to monitor.
--- NOTE | 2018-08-07 09:30 | NUR ---
IMM EXPLAINED, SIGNED AND ON CHART COPY TO PT IN CARE TRANSTION FOLDER
[2018-08-07] MEDS: AZITHROMYCIN 250MG/NS 100 ML 100 ML IV SCH (11:24)
[2018-08-07 11:49] VITALS: BP 98/63
[2018-08-07 12:13] VITALS: BP 100/57
[2018-08-07 16:24] VITALS: BP 118/87
[2018-08-07] MEDS ORDERED: XARELTO20 MG PO (16:48)
[2018-08-07] MEDS ORDERED: DIGOXIN125 MCG PO ×2 (16:49→16:52)
[2018-08-07] MEDS ORDERED: METOPROLOL TART25 MG PO (16:49)
--- NOTE | 2018-08-07 16:50 | NUR ---
Removed patients IV. Catheter tip intact and pressure dressing applied.
[2018-08-07] MEDS: DIGOXIN 0.25 MG TAB PO SCH (17:20)
--- NOTE | 2018-08-07 17:20 | NUR ---
Patient discharged from facility. Patient gathered all personal belongings, discharge information, follow up information, and prescriptions. No signs of distress when leaving facility.
--- NOTE | 2018-08-08 13:20 | Operative Report ---
DATE OF PROCEDURE: SURGEON: Wero Ro DO PROCEDURES PERFORMED: 1. Conscious sedation, 60 minutes. 2. Selective coronary angiography x2. 3. Selective graft angiography x2. 4. Left heart catheterization. 5. Aortic root angiogram. PREPROCEDURE DIAGNOSIS: Acute systolic congestive heart failure. POSTPROCEDURE DIAGNOSIS: Acute systolic congestive heart failure. ESTIMATED BLOOD LOSS: Less than 20 mL. SPECIMENS REMOVED: None. PROCEDURE IN DETAIL: After informed consent was obtained, the patient was brought to the cardiac catheterization laboratory in a fasting and nonsedated state. Bilateral groins were prepped and draped in the usual sterile fashion. 2% lidocaine was infiltrated over the right anterior groin for local anesthesia. Using micropuncture needle, the right common femoral artery was accessed via modified Seldinger technique and a 5-Niuean sheath was placed. Next, diagnostic coronary angiography was performed using a JL4 and 3DRC catheters. Imaging of the left subclavian system was performed and did not reveal a left internal mammary artery. Of significance, there was a small diminutive vessel, which was not anastomosed to any coronary vessels. Next, the grafts were visualized with a JR4 and a multipurpose catheter. Left heart catheterization was performed using a pigtail catheter, which was pulled back and used for aortography. Sheath was removed and hemostasis was achieved with a Mynx device. The patient tolerated procedure well. No immediate complications. Transferred back to his room in stable condition. PROCEDURE FINDINGS: 1. Left main coronary artery has eqsaozdm-va-fxfwht disease at the ostium and has a 99% subtotal occlusion of the distal left main, extending into the LAD. The circumflex is occluded at its ostium. 2. Right coronary artery is occluded at its ostium. 3. There is a saphenous vein graft anastomosed to the distal right coronary artery that is patent. The graft itself has a patent stent seen in the proximal portion of this. This provides excellent flow in a retrograde and antegrade manner in the RCA, posterolateral, and posterior descending vessels. 4. There is a patent saphenous vein graft anastomosed to the mid LAD, then with a subsequent jump graft to the diagonal system. The vein graft itself is patent and has a stent in the proximal portion that has mild in-stent restenosis. The LAD fills well and has mild disease distally. 5. Left ventricular end-diastolic pressure is 8 mmHg. No aortic valve gradient upon pullback. 6. Aortic root angiogram showed normal aortic dimensions without any additional grafts visualized. RECOMMENDATIONS: The patient will be placed on optimal medical therapy for his coronary artery disease. DO AMBER Nickerson/ZAIN /[id number]
== END 2018-08-07 17:24 | disposition home or self-care (01) | DRG 287 ==
LOC: ER 14:25 → ERHOLD 17:42 → MED/SURG 18:35 → OBSVTOIN 07-31 09:41
PROC: 0W993ZX Drainage of Right Pleural Cavity, Percutaneous Approach, Diagnostic (ICD-10-PCS; 2018-08-04)
PROC: 0W9B3ZX Drainage of Left Pleural Cavity, Percutaneous Approach, Diagnostic (ICD-10-PCS; 2018-08-05)
PROC: 4A023N7 Measurement of Cardiac Sampling and Pressure, Left Heart, Percutaneous Approach (ICD-10-PCS; principal; 2018-08-06)
PROC: B2131ZZ Fluoroscopy of Multiple Coronary Artery Bypass Grafts using Low Osmolar Contrast (ICD-10-PCS; 2018-08-06)
PROC: B2111ZZ Fluoroscopy of Multiple Coronary Arteries using Low Osmolar Contrast (ICD-10-PCS; 2018-08-06)
PROC: B2151ZZ Fluoroscopy of Left Heart using Low Osmolar Contrast (ICD-10-PCS; 2018-08-06)
PROC: B3101ZZ Fluoroscopy of Thoracic Aorta using Low Osmolar Contrast (ICD-10-PCS; 2018-08-06)
DX: I11.0 Hypertensive heart disease with heart failure (principal); J90 Pleural effusion, not elsewhere classified; I50.23 Acute on chronic systolic (congestive) heart failure; R00.2 Palpitations; I48.2 Chronic atrial fibrillation; I25.10 Atherosclerotic heart disease of native coronary artery without angina pectoris; Z85.51 Personal history of malignant neoplasm of bladder; I73.9 Peripheral vascular disease, unspecified; Z95.5 Presence of coronary angioplasty implant and graft; E11.649 Type 2 diabetes mellitus with hypoglycemia without coma; E78.5 Hyperlipidemia, unspecified; K21.9 Gastro-esophageal reflux disease without esophagitis; N40.0 Benign prostatic hyperplasia without lower urinary tract symptoms; J84.10 Pulmonary fibrosis, unspecified; T36.0X5A Adverse effect of penicillins, initial encounter; Y92.230 Patient room in hospital as the place of occurrence of the external cause; Z79.82 Long term (current) use of aspirin; Z79.84 Long term (current) use of oral hypoglycemic drugs
CPT/HCPCS: 32555; 36415; 71045; 71275; 74174; 80048; 80053; 80061; 80162; 82550; 82553; 82947; 82948; 83036; 84484; 85025; 85610; 85730; 87070; 87205; 88112; 88305; 93005; 93306; 93459; 99284; C1760; C1769; G0378; J0456; J0696; J1160; J1940; J2001; J2250; J7030; J7040; J7050; J7799; Q9967

== ENCOUNTER → 2018-10-01 | Day surgery (SDC) | payer MEDICARE ==
[2018-09-30 16:19] LABS: BLOOD UREA NITROGEN 19 mg/dL (7-26); BUN/CREATININE RATIO 13 (6-25); CHLORIDE 92 mmol/L (98-107); CREATININE, SERUM 1.42 mg/dL (0.72-1.25); EST GLOMERULAR FILTRATION RATE 48 ML/MIN (60-); GLUCOSE 179 mg/dL (74-118); POTASSIUM 3.7 mmol/L (3.5-5.1); SODIUM 129 mmol/L (136-145)
[2018-09-30 16:30] LABS: ANION GAP 30.7 mmol/L (8-16); CARBON DIOXIDE < 10 mmol/L (22-29)
--- NOTE | 2018-09-30 16:35 | Diagnostic Imaging Report ---
EXAMINATION: PA and lateral views of the chest. COMPARISON: Chest radiograph 08/05/2018, CT chest 07/29/2018 CLINICAL HISTORY: Preoperative study for urological procedure DISCUSSION: Lungs are well-inflated. Serpiginous opacities project over the mid lungs, compatible with calcified pleural plaques as seen on the comparison CTA. 1.8 cm left lower lobe pulmonary nodule. Stable cardiomediastinal contour with postsurgical changes of coronary artery bypass. No acute osseous abnormality. IMPRESSION: No acute cardiopulmonary abnormality. 1.8 cm left lower lobe pulmonary nodule should be assessed for stability by CT scan of the chest in one month (3 months from index CTA 07/29/2018). Signed by: Dr. Benjamin Santacruz M.D. on 09/30/2018 4:31 PM
[2018-09-30 16:39] LABS: BASOPHILS % 0.2 % (0.0-1.0); EOSINOPHILS # (AUTO) 0.2 (0.0-0.4); EOSINOPHILS % 3.4 % (0.0-6.0); LYMPHOCYTES # (AUTO) 0.8 (1.0-3.2); MEAN CORPUSCULAR HEMOGLOBIN 33.9 pg (28-32); MEAN CORPUSCULAR HGB CONC 36.8 g/dL (31-35); MONOCYTES # (AUTO) 0.4 (0.2-0.8); MONOCYTES % 7.3 % (4.4-11.3); NEUTROPHILS # (AUTO) 4.5 (2.1-6.9); NEUTROPHILS % 75.4 % (38.7-80.0); RED BLOOD COUNT 4.13 x10e6/uL (4.3-5.7); RED CELL DISTRIBUTION WIDTH 12.2 % (11.7-14.4)
[2018-09-30 16:55] LABS: HEMATOCRIT 38.1 % (38.2-49.6); PLATELET COUNT 144 x10e3/uL (140-360)
[~2018-10-01] MED LIST changes: +CEFTRIAXONE SOD 1 GM/NS 50 ML 50 ML IV ONE; +COLACE100 MG PO; +DIGOXIN125 MCG PO; +EPHEDRINE SULFATE INJ 50 MG/10 ML SYR ONE; +FENTANYL CITRATE/PF 100MCG/2 ML INJ ONE; +INSULIN REGULAR, HUMAN 100 UNIT/1 ML 3ML VIAL ONE; +LIDOCAINE HCL 2% LOCAL INJ 5 ML SDV VIAL INJ ONE; +METOPROLOL TART25 MG PO; +NITROGLYCERIN0.4 MG SL; +ONDANSETRON HCL INJ 2MG/ML 2ML 2 MG/ML VIAL ONE; +PRAVASTATIN SOD40 MG PO; +PROPOFOL IV EMULSION 10 MG/ML 20 ML VIAL ONE; +SEVOFLURANE INHAL SOLN 250 ML PEN BTL ONE; +XARELTO20 MG PO
--- OUTSIDE RECORDS SUMMARY | 2018-10-01 08:36 | XMS REPORT | Clinical Summary ---
Author Author [facility] Address Unknown Phone Unavailable Care Team Providers Care Link Cutter Name Role Phone Michael Ro DO PCP [...] mg by 0 tablet mouth daily. Active pravastatin (PRAVACHOL) 0 40 MG tablet 7 Active sertraline (ZOLOFT) 25 MG TK 1 T PO QD 0 tablet 7 Active choline fenofibrate TK 1 C PO QD 3 (TRILIPIX) 135 mg capsule 7 Active tamsulosin (FLOMAX) 0.4 TAKE 1 30 capsule 0 08/10/201 mg capsule CAPSULE(0.4 9 MG) BY MOUTH DAILY 08/10/2018 Discontinued tamsulosin (FLOMAX) 0.4 Take 1 30 capsule 6 02/13/201 mg capsule,extended capsule (0.4 7 release 24hr mg total) by mouth daily. Active Problems Problem Noted Date BPH with [...] bilateral iliac artery stents, s/p femoral-tibial bypass Encounters Care Team Description Date Type Specialty Raymon Barbosa MD 08/09/2018 Refill Urology after 09/30/2017 Family History Medical History Relation Name Comments [...] VACCINE AGE 65 AND OVER INFLUENZA VACCINE 12/31/2018 Results Not on fileafter 09/30/2017 Insurance Payer Benefit Subscriber ID Type Phone Address Plan / Group UHC MEDICARE UHC xxxxxxxxx HMO MEDICARE HMO/PPO Advance Directives Patient has advance care planning documents on file. For more information, arnold e contact: Gabe Vega [address] [place] [address]
[2018-10-01 10:03] LABS: ANION GAP 26.2 mmol/L (8-16); CALCIUM 9.9 mg/dL (8.4-10.2); CREATININE, SERUM 1.48 mg/dL (0.72-1.25); POTASSIUM 3.2 mmol/L (3.5-5.1)
[2018-10-01 12:45] VITALS: BP 156/80
--- NOTE | 2018-10-04 19:32 | Operative Report ---
DATE OF PROCEDURE: 10/01/2018 SURGEON: Tj Kraft MD PREOPERATIVE DIAGNOSIS: History of carcinoma in situ of the bladder. POSTOPERATIVE DIAGNOSIS: History of carcinoma in situ of the bladder. OPERATIVE PROCEDURES PERFORMED: 1. Cystoscopy. 2. Bladder biopsy. ANESTHESIA: General anesthesia. ESTIMATED BLOOD LOSS: Minimal. INDICATIONS: Mr. Jason Fernandez is an 83-year-old man with a recent history of carcinoma in situ of the bladder, who underwent 6 weeks of intravesical BCG. He is now 6 weeks after that for repeat bladder biopsy. PROCEDURE IN DETAIL: The patient was brought into the operative room, placed in supine position and after administration of general anesthesia, he was placed in dorsal lithotomy position, prepped and draped in usual sterile fashion. Cystourethroscopy was performed using 21-Belarusian cystoscope. The anterior and posterior urethra were noted to be normal. The prostate revealed moderate trilobar hyperplasia. The bladder was entered with mild difficulty. Upon entrance into the bladder, the ureteral orifices were in normal anatomical position and produced clear efflux. On the intertrigonal ridge just inferior to the right ureteral orifice, there was an erythematous patch. This was biopsied and sent as a pathological specimen. There was also what looked like a papillary lesion on the left posterior wall, which was also biopsied and sent as a pathology specimen. The final specimen was taken from the upper portion of the posterior wall. All three sites were fulgurated using electrocautery device. There were no other suspicious mucosal lesions identified. Once adequate hemostasis was secured, the bladder was then drained in its entirety and the cystoscope and sheath were removed. The patient was returned to supine position and anesthesia was reversed. He was transferred to a bed and taken to the postanesthesia care unit in good condition. Of note, the needle and instrument count were correct at the conclusion of the case. MD JEFFERSON De Santiago/ZAIN /[id number]
== END | disposition home or self-care (01) ==
LOC: OR 08:32
PROVIDERS: ATTEND Urology
DX: D30.3 Benign neoplasm of bladder (principal); Z85.51 Personal history of malignant neoplasm of bladder; E11.9 Type 2 diabetes mellitus without complications; K21.9 Gastro-esophageal reflux disease without esophagitis; F41.9 Anxiety disorder, unspecified; F03.90 Unspecified dementia, unspecified severity, without behavioral disturbance, psychotic disturbance, mood disturbance, and anxiety; I48.91 Unspecified atrial fibrillation; I25.2 Old myocardial infarction; Z01.812 Encounter for preprocedural laboratory examination; Z01.818 Encounter for other preprocedural examination; Z79.02 Long term (current) use of antithrombotics/antiplatelets; Z79.82 Long term (current) use of aspirin; Z79.84 Long term (current) use of oral hypoglycemic drugs; Z86.73 Personal history of transient ischemic attack (TIA), and cerebral infarction without residual deficits; Z95.1 Presence of aortocoronary bypass graft
CPT/HCPCS: 36415 ×2; 52214; 71046; 80048 ×2; 82948; 85025; 88305; J0696; J2001; J2405; J2704

== ENCOUNTER → 2018-10-21 | Outpatient (CLI) | payer MEDICARE ==
[~2018-10-21] MED LIST changes: -CEFTRIAXONE SOD 1 GM/NS 50 ML 50 ML IV ONE; -EPHEDRINE SULFATE INJ 50 MG/10 ML SYR ONE; -FENTANYL CITRATE/PF 100MCG/2 ML INJ ONE; -INSULIN REGULAR, HUMAN 100 UNIT/1 ML 3ML VIAL ONE; -LIDOCAINE HCL 2% LOCAL INJ 5 ML SDV VIAL INJ ONE; -ONDANSETRON HCL INJ 2MG/ML 2ML 2 MG/ML VIAL ONE; -PROPOFOL IV EMULSION 10 MG/ML 20 ML VIAL ONE; -SEVOFLURANE INHAL SOLN 250 ML PEN BTL ONE
--- NOTE | 2018-10-21 12:20 | Diagnostic Imaging Report ---
EXAMINATION: CT scan of the chest without contrast. TECHNIQUE: Spiral CT images of the chest were performed from the lung apices to the level of the adrenal glands. No intravenous contrast was administered per referring physician request. Coronal and sagittal reformatted images were obtained. COMPARISON: Chest radiograph 09/30/2018, CTA of the chest 07/29/2018 CLINICAL HISTORY:Left lower lobe pulmonary nodule DISCUSSION: ABSENCE OF INTRAVENOUS CONTRAST DECREASES SENSITIVITY FOR DETECTION OF FOCAL LESIONS AND VASCULAR PATHOLOGY. LINES/TUBES: None. LUNGS AND AIRWAYS: 1.8 cm x 1.5 cm left lower lobe pulmonary nodule is unchanged in size compared to CTA 07/29/2018 (see series 6 image 41 on prior and series 3 image 70 on current). Interval resolution of bilateral pleural effusions with bilateral lower lobe subsegmental atelectasis, as well as patchy bilateral upper lobe groundglass opacities. Mild upper lobe predominant centrilobular emphysematous changes, and bibasilar reticular opacities. Innumerable calcified pleural plaques are again noted. PLEURA: Resolved bilateral pleural effusions. Calcified pleural plaques. HEART AND MEDIASTINUM: Questionable hypoattenuating nodule in the left lobe of the thyroid. Extensive atherosclerotic plaque of the aortic arch, great vessel origins, and [place] coronary arteries status post coronary artery bypass. No pericardial effusion. LYMPH NODES: No axillary, hilar, or mediastinal lymphadenopathy. ABDOMEN: Left renal cyst partially visualized. Visualized portions of the liver, spleen, pancreas, and adrenal glands otherwise unremarkable. Left renal calculus partially visualized. BONES AND SOFT TISSUES: No osseous destructive lesions. No focal soft tissue abnormalities. IMPRESSION: When accounting for differences in technique and interval resolution of bilateral pleural effusions, no appreciable interval change in size of the previously described 1.8 cm left lower lobe pulmonary nodule. PET-CT is suggested for further evaluation for metabolic activity. Alternatively, an additional 3 month follow-up CT scan of the chest without contrast may be obtained to assess for stability. 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 Mild upper lobe predominant emphysematous changes. Atherosclerotic vascular disease status post coronary artery bypass. Signed by: Dr. Benjamin Santacruz M.D. on 10/21/2018 12:17 PM
== END ==
LOC: CT 11:00
PROVIDERS: ATTEND Family Medicine
DX: R91.1 Solitary pulmonary nodule (principal)
CPT/HCPCS: 71250

== ENCOUNTER → 2019-08-05 | Day surgery (SDC) | payer MEDICARE ==
[2019-08-04 13:51] LABS: BASOPHILS % 0.5 % (0.0-1.0); EOSINOPHILS # (AUTO) 0.1 (0.0-0.4); EOSINOPHILS % 1.4 % (0.0-6.0); HEMATOCRIT 33.8 % (38.2-49.6); HEMOGLOBIN 13.2 g/dL (14.0-18.0); LYMPHOCYTES # (AUTO) 0.8 (1.0-3.2); LYMPHOCYTES % 18.8 % (18.0-39.1); MEAN CORPUSCULAR HEMOGLOBIN 38.2 pg (28-32); MEAN CORPUSCULAR HGB CONC 39.1 g/dL (31-35); MEAN CORPUSCULAR VOLUME 97.7 fL (81-99); MONOCYTES # (AUTO) 0.4 (0.2-0.8); MONOCYTES % 7.9 % (4.4-11.3); NEUTROPHILS # (AUTO) 3.1 (2.1-6.9); NEUTROPHILS % 70.9 % (38.7-80.0); PLATELET COUNT 125 x10e3/uL (140-360); RED BLOOD COUNT 3.46 x10e6/uL (4.3-5.7); RED CELL DISTRIBUTION WIDTH 13.8 % (11.7-14.4)
[2019-08-04 14:00] LABS: ANION GAP 24.3 mmol/L (8-16); CALCIUM 8.8 mg/dL (8.4-10.2); CREATININE, SERUM 1.51 mg/dL (0.72-1.25); POTASSIUM 4.3 mmol/L (3.5-5.1)
--- NOTE | 2019-08-04 14:29 | Diagnostic Imaging Report ---
EXAMINATION: CHEST 2 VIEWS INDICATION: Pre-operative COMPARISON: Chest are graft 09/30/2018 FINDINGS: LINES/TUBES:None LUNGS:The lungs are moderately inflated. No focal consolidation or pulmonary edema. Known left lower lobe pulmonary nodule is better seen on multiple prior CTs. PLEURA:Pleural-based calcifications, likely related to prior is vessels exposure. MEDIASTINUM:The cardiomediastinal silhouette appears unchanged in size and shape. Atherosclerotic calcifications of the thoracic aorta. BONES/SOFT TISSUES:No acute osseous injury. Sternotomy wires in place. ABDOMEN:No free air under the diaphragm. IMPRESSION: No focal pneumonia or pulmonary edema. Known left lower lobe pulmonary nodule is better seen on prior CT examinations than on this radiograph. Recommend continued follow-up as per prior recommendations. Pleural-based calcifications. Signed by: Rafal Almendarez MD on 08/04/2019 2:26 PM
[~2019-08-05] MED LIST changes: +ATORVASTATIN CA20 MG PO; +CEFTRIAXONE SOD 1 GM/NS 50 ML 50 ML IV ONE; +CETIRIZINE HCL10 MG PO; +DEXAMETHASONE SOD PHOS INJ 4 MG/ML VIAL ONE; +FENTANYL CITRATE/PF 100MCG/2 ML INJ ONE; +IOPAMIDOL 370 MG/ML 200 ML INFUS..BTL INJ ONE; +ONDANSETRON HCL INJ 2MG/ML 2ML 2 MG/ML VIAL ONE; +PROPOFOL IV EMULSION 10 MG/ML 20 ML VIAL ONE; +SEVOFLURANE INHAL SOLN 250 ML PEN BTL ONE; +SODIUM CHLORIDE 0.9% 50ML 50 ML ONE
[2019-08-05 12:46] VITALS: BP 160/88
--- NOTE | 2019-08-05 13:40 | Diagnostic Imaging Report ---
EXAM: CT Abdomen and Pelvis WITH intravenous contrast INDICATION: Bladder cancer COMPARISON: CT abdomen and pelvis of 07/29/2018, chest CT 10/21/2018 TECHNIQUE: Abdomen and pelvis were scanned utilizing a multidetector helical scanner from the lung base to the pubic symphysis after administration of IV contrast. Coronal and sagittal reformations were obtained. Routine protocol was performed. Scan was performed during portal venous phase. IV CONTRAST: 100mL of Isovue 370 ORAL CONTRAST: Water RADIATION DOSE: Total DLP: 237 mGy*cm Dose modulation, iterative reconstruction, and/or weight based adjustment of the mA/kV was utilized to reduce the radiation dose to as low as reasonably achievable. FINDINGS: LOWER THORAX: Unchanged 1.8 cm left lower lobe pulmonary nodule. Scattered coronary artery atherosclerotic calcifications. Small sliding hiatal hernia. HEPATOBILIARY: Diffuse hepatic steatosis. No focal liver lesions. No biliary ductal dilation. Unremarkable gallbladder. SPLEEN: Splenomegaly to 15 cm. PANCREAS: Mild diffuse pancreatic ductal prominence. No solid mass lesion. ADRENALS: No adrenal nodules. KIDNEYS/URETERS: No solid renal mass lesion. No renal calculi or hydronephrosis. Bilateral simple renal cysts. PELVIC ORGANS/BLADDER: Antidependent air in the bladder. The prostate measures up to 4.5 cm with internal calcification and mild posterior indentation of the bladder. PERITONEUM / RETROPERITONEUM: No free air or fluid. LYMPH NODES: No lymphadenopathy. VESSELS: Heavy diffuse atherosclerotic calcifications of the nonaneurysmal abdominal aorta and major branches. GI TRACT: No abnormal bowel thickening. No bowel obstruction. Mildly increased stool burden throughout the colon. BONES AND SOFT TISSUES: No acute osseous injury. No suspicious lytic or blastic lesions. IMPRESSION: Antidependent air in the bladder. Correlate with recent history of instrumentation. No evidence of soft tissue bladder mass on this noncontrast CT. Unchanged 1.8 cm left lower lobe pulmonary nodule. Given history of malignancy, recommend PET/CT versus percutaneous sampling. Hepatic steatosis. Splenomegaly. Signed by: Rafal Almendarez MD on 08/05/2019 1:38 PM
--- NOTE | 2019-08-08 11:15 | Operative Report ---
DATE OF PROCEDURE: 08/05/2019 SURGEON: Tj Kraft MD PREOPERATIVE DIAGNOSIS: History of carcinoma in situ of the bladder. POSTOPERATIVE DIAGNOSIS: History of carcinoma in situ of the bladder. PROCEDURES PERFORMED: 1. Cystoscopy. 2. Bladder biopsy. ANESTHESIA: General anesthesia. ESTIMATED BLOOD LOSS: Minimal. INDICATIONS: Mr. Jason Fernandez is an 84-year-old gentleman with a history of CIS of the bladder who underwent 6 weeks of intravesical BCG. He had initially had normal urinalysis, but now has micro hematuria and the urine FISH which is positive. He now presents for repeat cystoscopy. PROCEDURE IN DETAIL: The patient was brought to the operating room, placed in supine position and after administration of general anesthesia, he was placed in dorsal lithotomy position and prepped and draped in usual sterile fashion. Cystourethroscopy was performed using a 21-Pashto cystoscope. The anterior and posterior urethra were noted to be normal. The prostate revealed mild elevation of the median bar and mild lateral lobar hyperplasia. The bladder was entered without difficulty. Upon entrance into the bladder, the ureteral orifices were in normal anatomical position and produced largely clear efflux. The bladder mucosa was unusually benign. There was some scarring seen from prior biopsy sites. There was one area of mild erythema on the posterior wall. Cold cup bladder biopsy forceps were used to obtain biopsies from this area of mild erythema as well as 2 visually normal sites on the right and left lateral johnson. These biopsies were sent together to pathology for microscopic analysis. The Bugbee electrode was then used to fulgurate those areas. Once adequate hemostasis was secured, the bladder was drained in its entirety and the cystoscope and sheath were removed. The patient was returned to supine position. Anesthesia was reversed. He was transferred to a bed and taken to the postanesthesia care unit in good condition. Of note, the needle and instrument count were correct at the conclusion of the case. Tj Kraft MD HLW/MODL /[id number]
== END | disposition home or self-care (01) ==
LOC: OR 08:35
PROVIDERS: ATTEND Urology
DX: N30.20 Other chronic cystitis without hematuria (principal); Z85.51 Personal history of malignant neoplasm of bladder; N40.0 Benign prostatic hyperplasia without lower urinary tract symptoms; G47.33 Obstructive sleep apnea (adult) (pediatric); I25.810 Atherosclerosis of coronary artery bypass graft(s) without angina pectoris; R20.0 Anesthesia of skin; I25.2 Old myocardial infarction; I11.0 Hypertensive heart disease with heart failure; I50.9 Heart failure, unspecified; E78.5 Hyperlipidemia, unspecified; I48.91 Unspecified atrial fibrillation; E11.9 Type 2 diabetes mellitus without complications; Z01.810 Encounter for preprocedural cardiovascular examination; Z01.812 Encounter for preprocedural laboratory examination; Z01.818 Encounter for other preprocedural examination; Z79.82 Long term (current) use of aspirin; Z79.84 Long term (current) use of oral hypoglycemic drugs; Z79.02 Long term (current) use of antithrombotics/antiplatelets; Z95.1 Presence of aortocoronary bypass graft
CPT/HCPCS: 36415 ×2; 52214; 71046; 74177; 80048; 82948; 85025; 88305; 88313; 93005; J0696; J1100; J2405; J2704; J3010; Q9967

== ENCOUNTER 2020-05-08 16:25 | Emergency (ER) | payer MEDICARE ==
[~2020-05-08] VITALS: Ht 177.8 cm; Wt 56.7 kg
[~2020-05-08 16:25] MED LIST changes: -CEFTRIAXONE SOD 1 GM/NS 50 ML 50 ML IV ONE; -DEXAMETHASONE SOD PHOS INJ 4 MG/ML VIAL ONE; -FENTANYL CITRATE/PF 100MCG/2 ML INJ ONE; -IOPAMIDOL 370 MG/ML 200 ML INFUS..BTL INJ ONE; -ONDANSETRON HCL INJ 2MG/ML 2ML 2 MG/ML VIAL ONE; -PROPOFOL IV EMULSION 10 MG/ML 20 ML VIAL ONE; -SEVOFLURANE INHAL SOLN 250 ML PEN BTL ONE; -SODIUM CHLORIDE 0.9% 50ML 50 ML ONE
[2020-05-08 18:59] LABS: BASOPHILS % 0.1 % (0.0-1.0); EOSINOPHILS % 0.1 % (0.0-6.0); HEMATOCRIT 40.5 % (38.2-49.6); HEMOGLOBIN 14.3 g/dL (14.0-18.0); LYMPHOCYTES # (AUTO) 0.7 (1.0-3.2); LYMPHOCYTES % 8.1 % (18.0-39.1); MEAN CORPUSCULAR HEMOGLOBIN 34.5 pg (28-32); MEAN CORPUSCULAR HGB CONC 35.3 g/dL (31-35); MEAN CORPUSCULAR VOLUME 97.6 fL (81-99); MONOCYTES # (AUTO) 0.7 (0.2-0.8); MONOCYTES % 7.6 % (4.4-11.3); NEUTROPHILS # (AUTO) 7.6 (2.1-6.9); NEUTROPHILS % 83.7 % (38.7-80.0); PLATELET COUNT 114 x10e3/uL (140-360); RED BLOOD COUNT 4.15 x10e6/uL (4.3-5.7); RED CELL DISTRIBUTION WIDTH 13.4 % (11.7-14.4)
[2020-05-08 19:04] LABS: INR 0.9; PROTHROMBIN TIME 12.6 seconds (11.9-14.5)
[2020-05-08 19:15] LABS: ALBUMIN 3.8 g/dL (3.5-5.0); ALBUMIN/GLOBULIN RATIO 1.1 (0.8-2.0); ANION GAP 39.6 mmol/L (8-16); CALCIUM 9.7 mg/dL (8.4-10.2); CREATININE, SERUM 1.41 mg/dL (0.72-1.25); POTASSIUM 3.6 mmol/L (3.5-5.1)
[2020-05-08 20:40] LABS: BILIRUBIN,URINE NEGATIVE (NEGATIVE); CLARITY,URINE CLEAR (CLEAR); COLOR,URINE YELLOW (YELLOW); KETONES,URINE NEGATIVE (NEGATIVE); LEUKOCYTE ESTERASE ,URINE NEGATIVE (NEGATIVE); NITRITE,URINE NEGATIVE (NEGATIVE); PROTEIN,URINE DIPSTICK >=300 (NEGATIVE); URINE UROBILINOGEN 0.2 mg/dL (0.2 - 1)
[2020-05-08 20:48] LABS: BACTERIA,URINE MANY /HPF; EPITHELIAL CELLS,URINE FEW /LPF
[2020-05-08 20:52] VITALS: BP 139/64
== END 2020-05-08 21:00 | disposition other institution (70) ==
LOC: ER 17:07
DX: S06.5X0A Traumatic subdural hemorrhage without loss of consciousness, initial encounter (principal); M25.551 Pain in right hip; I10 Essential (primary) hypertension; E11.9 Type 2 diabetes mellitus without complications; E78.5 Hyperlipidemia, unspecified; K21.9 Gastro-esophageal reflux disease without esophagitis; F01.50 Vascular dementia, unspecified severity, without behavioral disturbance, psychotic disturbance, mood disturbance, and anxiety; Z86.73 Personal history of transient ischemic attack (TIA), and cerebral infarction without residual deficits; Z85.51 Personal history of malignant neoplasm of bladder; I25.2 Old myocardial infarction
CPT/HCPCS: 36415; 70450; 72125; 80053; 81001; 85025; 85610; 93005; 99284